=== PATIENT | female | born 1935 | race Caucasian/White ===

== ENCOUNTER 2017-04-10 08:51 | Day surgery (SDC) | payer MEDICARE, OTHER ==
[2017-04-08 11:32] VITALS: BMI 33.1
[~2017-04-10 08:51] MED LIST: LACTATED RINGERS 1,000 ML IV SCH; LIDOCAINE 1% 20 ML VIAL (10MG/ML) FOR IV START INTRADERMA PRN
[2017-04-10 10:00] VITALS: TEMP 99
[2017-04-10] MEDS ORDERED: LIDOCAINE 1% INJ 10MG/ML (20 ML MDV) ONE (11:19)
[2017-04-10] MEDS ORDERED: GLYCOPYRROLATE 0.2 MG/ML 2 ML VIAL ONE (11:19)
[2017-04-10] MEDS ORDERED: PROPOFOL 10 MG/ML 20 ML VIAL IV ONE (11:19)
--- NOTE | 2017-04-10 11:49 | P.PCN ---
Date of Procedure: 04/10/17 Preoperative Diagnosis: Postoperative Diagnosis: Procedure(s) Performed: Procedure: Esophagogastroduodenoscopy and biopsy. Preoperative diagnosis: Hiatal hernia and abnormal barium study. Postoperative diagnosis: 1. Large hiatal hernia with sliding and paraesophageal components with no esophagitis or complicated reflux disease. 2. Gastritis with a small, benign-looking, polypoid elevation in the cardia close to the GE junction, but no ulcers or bleeding. 3. Biopsies obtained from the antrum and cardia. Preparation and sedation: Was provided by anesthesia. Brief clinical history: The patient is an 81-year-old female who is symptomatic from a large hiatal hernia for which she was evaluated for possible surgical intervention. The patient has history of H. pylori infection which was treated in the past. On her recent barium swallow, there was suggestion of mucosal abnormalities which prompted her referral for this EGD prior to surgery. Procedure: With the patient on her left lateral decubitus position and after informed consent and adequate sedation, I passed the Olympus-GIF 160 video upper endoscope through the cricopharyngeus down the esophagus. GE junction was at 30 cm from the incisors. The esophagus did not show any obvious erosions , ulcers, strictures or Hong's esophagus. There was a sizable hiatal hernia , as previously described, with both sliding and paraesophageal components that extended to around 37-38 cm from the incisors. The endoscope was then advanced to the rest of the stomach which was insufflated with air and inspected in detail including the retroflex view in the cardia. There was diffuse mottling and erythema and small polypoid, benign looking, elevation in the cardia close to the GE junction. I obtained biopsies in the antrum and in the cardia before the endoscope was withdrawn. Pyloric channel did not show any ulcers. Duodenal bulb, post bulbar area and descending duodenum showed minimal erythema. The patient tolerated the procedure well. Plan: The patient was reassured. Will await biopsy results. Further plans based on her course. I will forward this information that you and to her surgical team at the [facility]. Implants: Indications for Procedure: Operative Findings: Description of Procedure:
[2017-04-10 11:56] VITALS: RESP 18
[2017-04-10 12:29] VITALS: BP 139/84; PULSE 69
== END 2017-04-10 12:45 | disposition home or self-care (01) ==
LOC: ORWHC2ENDO 08:51
DX: K44.9 Diaphragmatic hernia without obstruction or gangrene (principal); K29.50 Unspecified chronic gastritis without bleeding; K29.00 Acute gastritis without bleeding; I10 Essential (primary) hypertension; K21.9 Gastro-esophageal reflux disease without esophagitis; I25.10 Atherosclerotic heart disease of native coronary artery without angina pectoris; J45.909 Unspecified asthma, uncomplicated; G43.909 Migraine, unspecified, not intractable, without status migrainosus; Z86.711 Personal history of pulmonary embolism; Z88.5 Allergy status to narcotic agent; Z91.040 Latex allergy status; Z79.891 Long term (current) use of opiate analgesic; Z79.51 Long term (current) use of inhaled steroids; Z79.899 Other long term (current) drug therapy
CPT/HCPCS: 88305; 88342; 43239; J2001; J2704

== ENCOUNTER → 2018-07-22 | Outpatient (CLI) | payer MEDICARE, OTHER ==
--- NOTE | 2018-07-22 14:39 | XR ---
EXAMINATION TYPE: XR lumbar spine 2 or 3V DATE OF EXAM: 07/22/2018 COMPARISON: None HISTORY: Fall, pain TECHNIQUE: 4 view lumbar spine FINDINGS: There is a scoliosis present with the convexity to the right centered at L1-2. There 5 lumb ar-type vertebral bodies. Visualized pedicles are intact. There is some limitation due to the scolios is. There is a grade 1 spondylolisthesis of L4 anterior and L5. A retrolisthesis of L3 on L4 which appear s to be a grade 1 is present. There is loss of disc height L2-L3 and L1-2. Note is made of vascular calcification within the aorta. IMPRESSION: 1. Grade 1 Spondylolisthesis of L4 anterior on L5 and L3. 2. Scoliosis. 3. No acute osseous abnormality.
--- NOTE | 2018-07-22 14:48 | CT ---
EXAMINATION TYPE: CT brain wo con DATE OF EXAM: 07/22/2018 COMPARISON: None INDICATION: pain after fall DLP: 997 mGycm, Automated exposure control for dose reduction was used. CONTRAST: None CT of the brain is performed utilizing 3 mm thick sections through the posterior fossa and 3 mm thick sections through the remaining calvarium. Study is performed within 24 hours of arrival to the hosp [facility]. No abnormal hyperdensity is present to suggest an acute intracranial hemorrhage. No mass lesion is evident. No acute infarcts are evident. Minimal periventricular white matter changes may be present, likely on the basis of chronic white matter ischemic change Ventricles and sulci are appropriate for the patient age. Paranasal sinuses and mastoid air cells within the [id number] are clear. IMPRESSIONS: 1. No acute intracranial process.
== END | disposition home or self-care (01) ==
LOC: RADCTMAIN 13:41
PROVIDERS: ATTEND Internal Medicine
DX: M43.16 Spondylolisthesis, lumbar region (principal); M41.86 Other forms of scoliosis, lumbar region; S09.90XA Unspecified injury of head, initial encounter
CPT/HCPCS: 70450; 72100

== ENCOUNTER 2018-11-04 14:16 | Emergency (ER) | payer MEDICARE, OTHER ==
[2018-11-04 14:23] VITALS: TEMP 98.2
[2018-11-04] MEDS ORDERED: ONDANSETRON 4 MG/2 ML VIAL IVP STA ×2 (14:36→18:24)
[2018-11-04] MEDS ORDERED: SODIUM CHLORIDE 0.9% 1,000 ML IV STA (14:36)
--- NOTE | 2018-11-04 14:39 | ED ---
General Adult HPI - General Chief complaint: Nausea/Vomiting/Diarrhea Stated complaint: vomiting Time Seen by Provider: 11/04/18 14:26 Source: patient, RN notes reviewed Mode of arrival: wheelchair Limitations: no limitations - History of Present Illness Initial comments: Patient 83-year-old female presented to the emergency room today with chief complaint of symptoms of nausea vomiting over the last 4 days. Patient does admit that she's had a decreased appetite as he is had multiple episodes of nausea vomiting. Denies any signs of blood in the emesis. States she's not had diarrhea. Does admits to some cramping pain in the abdomen. Patient admits that she started antibiotics of penicillin 5 or 6 days ago due to a dental abscess. Patient denies any other complaints or symptoms. Patient denies any recent fever, chills, shortness of breath, chest pain, back pain, numbness or tingling, dysuria or hematuria, constipation or diarrhea, headaches or visual changes, or any other complaints. - Related Data Home Medications Medication Instructions Recorded Confirmed Metoprolol Succinate (ER) [Toprol 25 mg PO HS 05/02/14 11/04/18 XL] Warfarin [Coumadin] 2.5 mg PO DIRECTED 05/02/14 11/04/18 traMADol HCl [Ultram] 50 - 100 mg PO Q6H PRN 05/02/14 11/04/18 Cetirizine HCl [Zyrtec] 10 mg PO DAILY 04/26/16 11/04/18 Fluticasone Nasal Guys [Flonase 1 spray EA NOSTRIL HS 04/26/16 11/04/18 Nasal Guys] Fluticasone/Salmeterol [Advair 1 puff INHALATION RT-BID 04/26/16 11/04/18 500-50 Diskus] Warfarin [Coumadin] 1.25 mg PO DIRECTED 04/26/16 11/04/18 Citalopram Hydrobromide [CeleXA] 30 mg PO HS 04/08/17 11/04/18 amLODIPine [Norvasc] 2.5 mg PO DAILY 04/08/17 11/04/18 Pantoprazole Sodium [Protonix] 40 mg PO HS 11/04/18 11/04/18 Penicillin V Potassium [Pen Vee K] 500 mg PO TID 11/04/18 11/04/18 Pregabalin [Lyrica] 75 mg PO BID 11/04/18 11/04/18 Vitamin B Complex 1 tab PO DAILY 11/04/18 11/04/18 Previous Rx's Medication Instructions Recorded Metoclopramide HCl [Reglan] 10 mg PO Q6HR PRN #10 tab 11/04/18 Allergies Allergy/AdvReac Type Severity Reaction Status Date / Time tree and shrub pollen Allergy Severe sob, Verified 11/04/18 14:43 sneezing , coughing latex Allergy Unknown RAW SKIN Verified 11/04/18 14:43 AND SCABS FROM ELASTIC mold Allergy Unknown coughing, Verified 11/04/18 14:43 sneezing, sob morphine Allergy Itching, Verified 11/04/18 14:43 sob Review of Systems ROS Statement: Those systems with pertinent positive or pertinent negative responses have been documented in the HPI. ROS Other: All systems not noted in ROS Statement are negative. Past Medical History Past Medical History: Asthma, Blood Disorder, Chest Pain / Angina, GERD/Reflux, Hypertension, Osteoarthritis (OA), Pulmonary Embolus (PE) Additional Past Medical History / Comment(s): Migraines. hiatal hernia, diverticulitis. , occasional irregular heart rate. , vertigo, varicose veins, back pain, sees chiropracter prn, FACTOR 2 BLOOD CLOTTING DISORDER., Carpal tunnel syndrome lacy wrists. History of Any Multi-Drug Resistant Organisms: None Reported Past Surgical History: Appendectomy, Section, Heart Catheterization, Joint Replacement, Tonsillectomy Additional Past Surgical History / Comment(s): knee replacements x3., left hip replacement, left shoulder replacement, lacy rotator cuff. BILATERAL CATARACTS. , right thumb joint replaced. Past Anesthesia/Blood Transfusion Reactions: No Reported Reaction Additional Past Anesthesia/Blood Transfusion Reaction / Comment(s): STATES IT TAKES ALONG TIME TO GET ANESTHESIA OUT OF HER SYSTEM . Past Psychological History: Anxiety, Depression Smoking Status: Never smoker Past Alcohol Use History: None Reported Past Drug Use History: None Reported - Past Family History Mother Family Medical History: No Reported History General Exam - General Exam Comments Initial Comments: General: The patient is awake and alert, in no distress, and does not appear acutely ill. Eye: Pupils are equal, round and reactive to light, extra-ocular movements are intact. No nystagmus. There is normal conjunctiva bilaterally. No signs of icterus. Ears, nose, mouth and throat: There are moist mucous membranes and no oral lesions. Neck: The neck is supple. Cardiovascular: There is a regular rate and rhythm. No murmur, rub or gallop is appreciated. Respiratory: Lungs are clear to auscultation, respirations are non-labored, breath sounds are equal. No wheezes, stridor, rales, or rhonchi. Gastrointestinal: Abdomen soft on palpation. Mild tenderness epigastric and left upper quadrant. No rebound, guarding or CVA tenderness. Musculoskeletal: Normal ROM, no tenderness. Strength 5/5. Sensation intact. Radial/pedal Pulses equal bilaterally 2+. Neurological: A&O x 3. CN II-XII intact, There are no obvious motor or sensory deficits. Coordination appears grossly intact. Speech is normal. Skin: Skin is warm and dry and no rashes or lesions are noted. Psychiatric: Cooperative, appropriate mood & affect, normal judgment. Limitations: no limitations Course Vital Signs 11/04/18 11/04/18 11/04/18 14:20 17:04 18:30 Temperature 98.2 F Pulse Rate 98 93 84 Respiratory 16 18 18 Rate Blood Pressure 163/93 146/88 152/78 O2 Sat by Pulse 96 96 95 Oximetry 11/04/18 19:52 Temperature Pulse Rate 95 Respiratory 18 Rate Blood Pressure 152/87 O2 Sat by Pulse 96 Oximetry EKG Findings - EKG Comments: EKG Findings:: EKG performed at 1449: Shows normal sinus rhythm at 88 bpm. NC interval 132. QRS 88. QT/QTc 404/480. No acute ST changes. Medical Decision Making - Medical Decision Making Patient's CT the abdomen and pelvis does show a large hiatal hernia. Does show evidence for diverticulosis with no evidence of diverticulitis. Patient's CT the head is negative for any acute abnormality. Patient's labs been reviewed unremarkable. Patient's abdomen is soft nontender on repeat exam. Patient reexamined at this time shows no signs of distress. Is feeling better. Abdomen soft nontender. Patient will be discharged home with prescription for Reglan. Advised follow-up family doctor over the next 2 days. Advised return if any symptoms increase or worsen. - Lab Data Result diagrams: 11/04/18 15:10 11/04/18 15:10 Lab Results 11/04/18 11/04/1811/04/18 Range/Units 15:10 15:10 15:10 WBC 8.0 (3.8-10.6) k/uL RBC 4.23 (3.80-5.40) m/uL Hgb 11.5 (11.4-16.0) gm/dL Hct 36.2 (34.0-46.0) % MCV 85.5 (80.0-100.0) fL MCH 27.1 (25.0-35.0) pg MCHC 31.7 (31.0-37.0) g/dL RDW 16.3 H (11.5-15.5) % Plt Count 265 (150-450) k/uL Neutrophils % 81 % Lymphocytes % 12 % Monocytes % 6 % Eosinophils % 0 % Basophils % 0 % Neutrophils # 6.5 (1.3-7.7) k/uL Lymphocytes # 1.0 (1.0-4.8) k/uL Monocytes # 0.4 (0-1.0) k/uL Eosinophils # 0.0 (0-0.7) k/uL Basophils # 0.0 (0-0.2) k/uL Anisocytosis Slight PT (9.0-12.0) sec INR (<1.2) APTT (22.0-30.0) sec Sodium 138 (137-145) mmol/L Potassium 3.7 (3.5-5.1) mmol/L Chloride 107 (98-107) mmol/L Carbon Dioxide 22 (22-30) mmol/L Anion Gap 9 mmol/L BUN 10 (7-17) mg/dL Creatinine 0.58 (0.52-1.04) mg/dL Est GFR (CKD-EPI)AfAm >90 (>60 ml/min/1.73 sqM) Est GFR (CKD-EPI)NonAf 85 (>60 ml/min/1.73 sqM) Glucose 109 H (74-99) mg/dL Calcium 9.5 (8.4-10.2) mg/dL Total Bilirubin 0.7 (0.2-1.3) mg/dL AST 31 (14-36) U/L ALT 23 (9-52) U/L Alkaline Phosphatase 120 (38-126) U/L Total Creatine Kinase 86 (30-135) U/L CK-MB (CK-2) 1.0 (0.0-2.4) ng/mL CK-MB (CK-2) Rel Index 1.2 Troponin I (0.000-0.034) ng/mL Total Protein 7.1 (6.3-8.2) g/dL Albumin 3.7 (3.5-5.0) g/dL Amylase 54 (30-110) U/L Lipase 92 (23-300) U/L Urine Color Urine Appearance (Clear) Urine pH (5.0-8.0) Ur Specific [place] (1.001-1.035) Urine Protein (Negative) Urine Glucose (UA) (Negative) Urine Ketones (Negative) Urine Blood (Negative) Urine Nitrite (Negative) Urine Bilirubin (Negative) Urine Urobilinogen (<2.0) mg/dL Ur Leukocyte Esterase (Negative) Urine RBC (0-5) /hpf Urine WBC (0-5) /hpf Ur Squamous Epith Cells (0-4) /hpf Urine Bacteria (None) /hpf Urine Mucus (None) /hpf 11/04/18 11/04/18 11/04/18 Range/Units 15:10 15:10 15:10 WBC (3.8-10.6) k/uL RBC (3.80-5.40) m/uL Hgb (11.4-16.0) gm/dL Hct (34.0-46.0) % MCV (80.0-100.0) fL MCH (25.0-35.0) pg MCHC (31.0-37.0) g/dL RDW (11.5-15.5) % Plt Count (150-450) k/uL Neutrophils % % Lymphocytes % % Monocytes % % Eosinophils % % Basophils % % Neutrophils # (1.3-7.7) k/uL Lymphocytes # (1.0-4.8) k/uL Monocytes # (0-1.0) k/uL Eosinophils # (0-0.7) k/uL Basophils # (0-0.2) k/uL Anisocytosis PT 15.4 H (9.0-12.0) sec INR 1.5 H (<1.2) APTT 21.7 L (22.0-30.0) sec Sodium (137-145) mmol/L Potassium (3.5-5.1) mmol/L Chloride (98-107) mmol/L Carbon Dioxide (22-30) mmol/L Anion Gap mmol/L BUN (7-17) mg/dL Creatinine (0.52-1.04) mg/dL Est GFR (CKD-EPI)AfAm (>60 ml/min/1.73 sqM) Est GFR (CKD-EPI)NonAf (>60 ml/min/1.73 sqM) Glucose (74-99) mg/dL Calcium (8.4-10.2) mg/dL Total Bilirubin (0.2-1.3) mg/dL AST (14-36) U/L ALT (9-52) U/L Alkaline Phosphatase (38-126) U/L Total Creatine Kinase (30-135) U/L CK-MB (CK-2) (0.0-2.4) ng/mL CK-MB (CK-2) Rel Index Troponin I <0.012 (0.000-0.034) ng/mL Total Protein (6.3-8.2) g/dL Albumin (3.5-5.0) g/dL Amylase (30-110) U/L Lipase (23-300) U/L Urine Color Yellow Urine Appearance Clear (Clear) Urine pH 7.0 (5.0-8.0) Ur Specific [place] 1.007 (1.001-1.035) Urine Protein Negative (Negative) Urine Glucose (UA) Negative (Negative) Urine Ketones 2+ H (Negative) Urine Blood Negative (Negative) Urine Nitrite Negative (Negative) Urine Bilirubin Negative (Negative) Urine Urobilinogen <2.0 (<2.0) mg/dL Ur Leukocyte Esterase Small H (Negative) Urine RBC <1 (0-5) /hpf Urine WBC 2 (0-5) /hpf Ur Squamous Epith Cells 1 (0-4) /hpf Urine Bacteria Rare H (None) /hpf Urine Mucus Rare H (None) /hpf Disposition Clinical Impression: Nausea & vomiting Disposition: HOME SELF-CARE Condition: Good Instructions: Acute Nausea and Vomiting (ED) Additional Instructions: Please use medication as discussed. Please follow-up with family doctor in the next 2 days of symptoms have not improved. Please return to emergency room if the symptoms increase or worsen or for any other concerns. Prescriptions: Metoclopramide HCl [Reglan] 10 mg PO Q6HR PRN #10 tab PRN Reason: Nausea Is patient prescribed a controlled substance at d/c from ED?: No Referrals: Kathryn Hankins MD [Primary Care Provider] - 1-2 days Time of Disposition: 20:21
[2018-11-04 15:28] LABS: Anisocytosis Slight; Basophils % (A) 0 %; Eosinophils % (A) 0 %; HCT 36.2 % (34.0-46.0); HGB 11.5 gm/dL (11.4-16.0); Lymphocytes % (A) 12 %; MCH 27.1 pg (25.0-35.0); MCHC 31.7 g/dL (31.0-37.0); MCV 85.5 fL (80.0-100.0); Mean Platelet Volume 7.2; Monocytes # (A) 0.4 k/uL (0-1.0); Monocytes % (A) 6 %; Neutrophils # (A) 6.5 k/uL (1.3-7.7); Neutrophils % (A) 81 %; Platelet Count 265 k/uL (150-450); RBC 4.23 m/uL (3.80-5.40); RDW 16.3 % (11.5-15.5)
[2018-11-04 15:37] LABS: ALT 23 U/L (9-52); AST 31 U/L (14-36); Albumin 3.7 g/dL (3.5-5.0); Alkaline Phosphatase 120 U/L (38-126); Amylase 54 U/L (30-110); Anion Gap 9 mmol/L; Blood Urea Nitrogen 10 mg/dL (7-17); Calcium 9.5 mg/dL (8.4-10.2); Carbon Dioxide 22 mmol/L (22-30); Chloride 107 mmol/L (98-107); Glucose 109 mg/dL (74-99); Lipase 92 U/L (23-300); Potassium 3.7 mmol/L (3.5-5.1); Sodium 138 mmol/L (137-145); Total Bilirubin 0.7 mg/dL (0.2-1.3); Total Protein 7.1 g/dL (6.3-8.2)
[2018-11-04 16:10] LABS: INR 1.5 (<1.2); Partial Thromboplastin Time 21.7 sec (22.0-30.0); Prothrombin Time 15.4 sec (9.0-12.0)
[2018-11-04 16:48] LABS: Appearance,Urine Clear (Clear); Bacteria,Urine Rare /hpf; Bilirubin,Urine Negative (Negative); Blood,Urine Negative (Negative); Color,Urine Yellow; Glucose,Urine (UA) Negative (Negative); Ketones,Urine 2+ (Negative); Leukocyte Esterase,Urine Small (Negative); Mucus,Urine Rare /hpf; Nitrite,Urine Negative (Negative); Protein,Urine Negative (Negative); RBC,Urine <1 /hpf (0-5); Specific Gravity,Urine 1.007 (1.001-1.035); Squamous Epithelial Cell,Urine 1 /hpf (0-4); Urobilinogen,Urine <2.0 mg/dL (<2.0)
[2018-11-04 17:05] VITALS: RESP 18
[2018-11-04] MEDS ORDERED: ACETAMINOPHEN TAB 325 MG TAB PO STA (17:13)
--- NOTE | 2018-11-04 18:03 | CT ---
EXAMINATION TYPE: CT brain wo con DATE OF EXAM: 11/04/2018 COMPARISON: 07/22/2018 HISTORY: Headache. CT DLP: 1090.4 mGycm Automated exposure control for dose reduction was used. FINDINGS: There is cerebral cortical atrophy. There is no mass effect nor midline shift. There is no sign of in tracranial hemorrhage. The calvarium is intact. IMPRESSION: CEREBRAL ATROPHY. NO ACUTE INTRACRANIAL ABNORMALITY. NO CHANGE.
--- NOTE | 2018-11-04 18:31 | CT ---
EXAMINATION TYPE: CT abdomen pelvis w con DATE OF EXAM: 11/04/2018 COMPARISON: None HISTORY: Upper abdominal pain with nausea and vomiting x [address] DLP: mGycm Automated exposure control for dose reduction was used. TECHNIQUE: Helical acquisition of images was performed from the lung bases through the pelvis. CONTRAST: Performed without Oral Contrast and with IV Contrast, patient injected with 100 mL of Isovue 300. FINDINGS: There is some patchy atelectasis at the right lung base. There is large hiatal hernia. Heart size is normal. There is no pleural effusion. Liver shows no focal defect. Gallbladder appears normal. Spleen appears normal. There is no pancreatic mass. There is no adrenal mass. Kidneys show satisfactory contrast opacification. There is no hydronephrosi s. There is no retroperitoneal adenopathy. Ureters are not dilated. Bladder distends smoothly. There is metal artifact from bilateral hip prosthesis. I see no free fluid in the pelvis. There is no ingui nal hernia. There are multiple sigmoid diverticula. There is no sign of diverticulitis. Terminal ileu m appears normal. Appendix is not seen. There is no sign of appendicitis. There is no evidence of a b owel obstruction. There are small cortical cysts that measure less than 1 cm in the kidneys. There is lumbar dextroscoliosis. There is multilevel spondylotic changes in the lumbar spine. There is degene rative first-degree L4-5 spondylolisthesis. I see no acute fracture. There is anterior wedging of T11 T10 and T9 vertebra. There is wedging of T7 vertebra. Fractures appear old. There is no mesenteric e christopher or adenopathy. There is no sign of free air. IMPRESSION: LARGE HIATAL HERNIA. EXTENSIVE COLONIC DIVERTICULOSIS WITHOUT DIVERTICULITIS. Spondylotic changes in the lumbar spine.
[2018-11-04] MEDS ORDERED: METOCLOPRAMIDE 5 MG/ML 2 ML VIAL IVP STA (19:41)
[2018-11-04] MEDS ORDERED: FAMOTIDINE 20 MG/2 ML VIAL IV STA (19:41)
[2018-11-04 19:59] VITALS: BP 152/87; PULSE 95
== END 2018-11-04 20:43 | disposition home or self-care (01) ==
LOC: EC 14:16
DX: R11.2 Nausea with vomiting, unspecified (principal); R19.7 Diarrhea, unspecified; K44.9 Diaphragmatic hernia without obstruction or gangrene; K57.30 Diverticulosis of large intestine without perforation or abscess without bleeding; J45.909 Unspecified asthma, uncomplicated; K21.9 Gastro-esophageal reflux disease without esophagitis; I10 Essential (primary) hypertension; M19.90 Unspecified osteoarthritis, unspecified site; F41.9 Anxiety disorder, unspecified; F32.9 Major depressive disorder, single episode, unspecified; Z79.51 Long term (current) use of inhaled steroids; Z79.01 Long term (current) use of anticoagulants; Z79.899 Other long term (current) drug therapy; Z91.040 Latex allergy status; Z88.5 Allergy status to narcotic agent; Z91.018 Allergy to other foods; Z91.048 Other nonmedicinal substance allergy status; Z95.5 Presence of coronary angioplasty implant and graft; Z96.642 Presence of left artificial hip joint; Z96.612 Presence of left artificial shoulder joint; Z96.659 Presence of unspecified artificial knee joint
CPT/HCPCS: 36415; 93005; 80053; 82150; 82550; 82553; 83690; 84484; 85025; 85610; 85730; 81001; 70450; 74177; 99284; 96374; 96375 ×2; 96376; 96361 ×3; J2765; J2405; Q9967

== ENCOUNTER → 2019-01-04 | Outpatient (CLI) | payer MEDICARE, OTHER ==
[2019-01-04 11:04] LABS: INR 1.2 (<1.2); Prothrombin Time 12.7 sec (9.0-12.0)
== END | disposition home or self-care (01) ==
LOC: LABWHC1 10:36
PROVIDERS: ATTEND Dentist Oral and Maxillofacial Surgery
DX: D68.9 Coagulation defect, unspecified (principal)
CPT/HCPCS: 36415; 85610

== ENCOUNTER → 2019-12-02 | Outpatient (CLI) | payer MEDICARE, OTHER ==
[2019-12-02 15:59] LABS: INR 2.3 (<1.2); Prothrombin Time 22.6 sec (9.0-12.0)
[2019-12-02 19:59] LABS: African American GFR (CKD) 67.6 (60.0-200.0); Anion Gap 10.9 mmol/L (4.00-12.00); BUN/Creat Ratio 28.89 Ratio (12.00-20.00); Calcium 9.3 mg/dL (8.7-10.3); Carbon Dioxide 26.1 mmol/L (21.6-31.8); Magnesium 1.8 mg/dL (1.5-2.4); Non-African American GFR(CKD) 58.3 (60.0-200.0); Potassium 4.1 mmol/L (3.5-5.5)
== END | disposition home or self-care (01) ==
LOC: LABWHC1 13:52
PROVIDERS: ATTEND Nurse Practitioner Adult Health
DX: I48.20 Chronic atrial fibrillation, unspecified (principal)
CPT/HCPCS: 36415; 80048; 83735; 85610

== ENCOUNTER → 2020-01-18 | Outpatient (CLI) | payer MEDICARE, OTHER ==
--- NOTE | 2020-01-18 15:08 | US ---
EXAMINATION TYPE: US kidneys/renal and bladder DATE OF EXAM: 01/18/2020 COMPARISON: NONE CLINICAL HISTORY: R31.0 Gross hematuria. Episode of gross hematuria, none now EXAM MEASUREMENTS: Right Kidney: 9.2 x 3.6 x 4.9 cm Left Kidney: 8.3 x 4.0 x 4.5 cm Right Kidney: No hydronephrosis or masses seen Left Kidney: limited views appear wnl Bladder: not fully distended, elderly patient IMPRESSION: Normal renal ultrasound
== END | disposition home or self-care (01) ==
LOC: RADUSWWP 13:58
PROVIDERS: ATTEND Internal Medicine
DX: R31.0 Gross hematuria (principal)
CPT/HCPCS: 76770

== ENCOUNTER → 2020-06-28 | Outpatient (CLI) | payer MEDICARE, OTHER ==
[2020-06-28 09:18] LABS: INR 1.3 (<1.2); Prothrombin Time 12.9 sec (9.0-12.0)
== END | disposition home or self-care (01) ==
LOC: LABWHC1 08:43
PROVIDERS: ATTEND Dentist Oral and Maxillofacial Surgery
DX: Z51.81 Encounter for therapeutic drug level monitoring (principal); Z79.01 Long term (current) use of anticoagulants
CPT/HCPCS: 36415; 85610

== ENCOUNTER 2020-07-03 11:02 | Emergency (ER) | payer MEDICARE, OTHER ==
[2020-07-03] MEDS ORDERED: SODIUM CHLORIDE 0.9% 500 ML 500 ML IV STA (11:33)
--- NOTE | 2020-07-03 12:16 | XR ---
EXAMINATION TYPE: XR chest 2V DATE OF EXAM: 07/03/2020 COMPARISON: 06/11/2013 HISTORY: 85-year-old female with fever TECHNIQUE: AP and lateral views FINDINGS: Heart borderline enlarged. Rounded retrocardiac density. Eventration anterior right hemidiaphragm unc hanged. No consolidation or pleural effusion seen. Left shoulder arthroplasty. Full-thickness rotator cuff tear on the right. IMPRESSION: Borderline heart size. Underlying moderate to large hiatal hernia. Chronic eventration anterior right hemidiaphragm. No definite acute process.
--- NOTE | 2020-07-03 13:02 | ED ---
General Adult HPI - General Source: patient Mode of arrival: wheelchair Limitations: no limitations <Joann Duvall - Last Filed: 07/03/20 12:58> <Kaiser Shane - Last Filed: 07/03/20 15:39> - General Chief complaint: Fever Stated complaint: fever, diarrhea, abd pain Time Seen by Provider: 07/03/20 11:08 - History of Present Illness Initial comments: Patient is an 85-year-old female presenting to the emergency Department with complaints of diarrhea, nausea for 2 days. Patient recently had dental work performed approximately 4 days ago and did take oral antibiotics before the procedure, she thinks it was amoxicillin. Patient states she has recovered okay from the procedure but in the last 2 days she started having multiple episodes of diarrhea. She's also been nauseous, no vomiting. She denies any abdominal pain. She states she is on Coumadin and was also started on xarleto to bridge the gap. She was supposed to follow up with her doctor today to test her INR to discontinue xarelto. Patient states she is not been able to eat much over the last 2 days secondary to her nausea. She is having some mild discomfort with urination as well. She denies any chest pain or shortness of breath. She states she does not have a fever today. She denies history of C. diff. She has no further complaints at this time. Upon arrival to the ER, patient was slightly tachycardia, rest of vitals are normal, afebrile. (Joann Duvall) - Related Data Home Medications Medication Instructions Recorded Confirmed Metoprolol Succinate (ER) [Toprol 25 mg PO HS 05/02/14 07/03/20 XL] traMADol HCl [Ultram] 50 mg PO BID 05/02/14 07/03/20 Cetirizine HCl [Zyrtec] 10 mg PO DAILY 04/26/16 07/03/20 Fluticasone Nasal [place] [Flonase 1 spray EA NOSTRIL HS 04/26/16 07/03/20 Nasal [place]] Fluticasone/Salmeterol [Advair 1 puff INHALATION RT-BID 04/26/16 07/03/20 500-50 Diskus] Citalopram Hydrobromide [CeleXA] 30 mg PO HS 04/08/17 07/03/20 amLODIPine [Norvasc] 2.5 mg PO DAILY 04/08/17 07/03/20 Pantoprazole Sodium [Protonix] 40 mg PO HS 11/04/18 07/03/20 Vitamin B Complex 1 tab PO DAILY 11/04/18 07/03/20 Chlorhexidine Gluconate [Peridex] 15 ml PO PC-TID 07/03/20 07/03/20 Gabapentin [Neurontin] 200 mg PO HS 07/03/20 07/03/20 Multivitamins, Thera [Multivitamin 1 tab PO DAILY 07/03/20 07/03/20 (formulary)] Warfarin [Coumadin] 2 mg PO HS 07/03/20 07/03/20 Xarelto Unknown Dose 1 tab PO HS 07/03/20 07/03/20 calcium polycarbophiL [Fibercon] 625 mg PO DAILY 07/03/20 07/03/20 Allergies Allergy/AdvReac Type Severity Reaction Status Date / Time tree and shrub pollen Allergy Severe sob, Verified 07/03/20 12:06 sneezing , coughing mold Allergy Unknown coughing, Verified 07/03/20 12:06 sneezing, sob morphine Allergy Itching, Verified 07/03/20 12:06 sob Review of Systems ROS Other: All systems not noted in ROS Statement are negative. <Joann Duvall - Last Filed: 07/03/20 12:58> ROS Other: All systems not noted in ROS Statement are negative. <Kaiser Shane - Last Filed: 07/03/20 15:39> ROS Statement: Those systems with pertinent positive or pertinent negative responses have been documented in the HPI. Past Medical History Past Medical History: Asthma, Blood Disorder, Chest Pain / Angina, GERD/Reflux, Hypertension, Osteoarthritis (OA), Pulmonary Embolus (PE) Additional Past Medical History / Comment(s): Migraines. hiatal hernia, diverticulitis. , occasional irregular heart rate. , vertigo, varicose veins, back pain, sees chiropracter prn, FACTOR 2 BLOOD CLOTTING DISORDER., Carpal tunnel syndrome lacy wrists. History of Any Multi-Drug Resistant Organisms: None Reported Past Surgical History: Appendectomy, Section, Heart Catheterization, Joint Replacement, Tonsillectomy Additional Past Surgical History / Comment(s): knee replacements x3., left hip replacement, left shoulder replacement, lacy rotator cuff. BILATERAL CATARACTS., right thumb joint replaced. Left carpal tunnel surgery November 2019. 4 dental extractions june 2020 Past Anesthesia/Blood Transfusion Reactions: No Reported Reaction Additional Past Anesthesia/Blood Transfusion Reaction / Comment(s): STATES IT TAKES ALONG TIME TO GET ANESTHESIA OUT OF HER SYSTEM . Past Psychological History: Anxiety, Depression Smoking Status: Never smoker Past Alcohol Use History: None Reported Past Drug Use History: None Reported - Past Family History Mother Family Medical History: No Reported History <Joann Duvall - Last Filed: 07/03/20 12:58> General Exam Limitations: no limitations Rectal exam: Present: normal rectal tone, heme (+) stool <Joann Duvall - Last Filed: 07/03/20 12:58> - General Exam Comments Initial Comments: GENERAL: Patient is well-developed and well-nourished. Patient is nontoxic and in no acute distress. HEAD: Atraumatic, normocephalic. EYES: Pupils equal round and reactive to light, extraocular movements intact, sclera anicteric, conjunctiva are normal. Eyelids were unremarkable. ENT: TMs normal, nares patent, oropharynx clear without exudates. Dry mucous membranes. NECK: Normal range of motion, supple without lymphadenopathy or JVD. LUNGS: Unlabored respirations. Breath sounds clear to auscultation bilaterally and equal. No wheezes rales or rhonchi. HEART: Regular rate and rhythm without murmurs, rubs or gallops. ABDOMEN: Soft, nontender, normoactive bowel sounds. No guarding, no rebound. No masses appreciated. : Deferred MUSCULOSKELETAL: Normal extremities with adequate strength and normal range of motion, no pitting or edema. No clubbing or cyanosis. NEUROLOGICAL: Patient is alert and oriented x 3. Motor and sensory are also intact. Cranial nerves II through XII grossly intact. Symmetrical smile. Normal speech, normal gait. PSYCH: Normal mood, normal affect. SKIN: Warm, Dry, normal turgor, no rashes or lesions noted. (Joann Duvall) Course <Kaiser Shane - Last Filed: 07/03/20 15:39> Vital Signs 07/03/20 11:03 Temperature 98.8 F Pulse Rate 131 H Respiratory 20 Rate Blood Pressure 114/59 O2 Sat by Pulse 98 Oximetry - Reevaluation(s) Reevaluation #1: 07/03/20 15:37 The patient was endorsed me by My physician water quality assistant at her shift change. Patient's UA was unremarkable for evidence of infection she did have heme positive stool did recently have a dental procedure hours she states she had a lot of bleeding. Her CBC is within normal is. She has INR 1.9. I did discuss the case with Dr. Hankins patient will be discharged she is to continue with her Coumadin only. The other anticoagulant. Also follow-up with Dr. Hankins in the office. (Kaiser Shane) Medical Decision Making <Joann Duvall - Last Filed: 07/03/20 12:58> - Lab Data Result diagrams: 07/03/20 13:28 07/03/20 13:28 <Kaiser Shane - Last Filed: 07/03/20 15:39> - Medical Decision Making Patient is a 85-year-old female here for diarrhea, nausea, fever 2 days. He is on Coumadin, had recent dental procedure and was bridging with xarleto. He shouldn't was tachycardia upon arrival, rest of vitals are normal, afebrile today. She denies any abdominal pain. (Joann Duvall) - Lab Data Lab Results 07/03/20 07/03/20 07/03/20 Range/Units 12:46 13:28 13:28 WBC 7.8 (3.8-10.6) k/uL RBC 4.24 (3.80-5.40) m/uL Hgb 12.9 (11.4-16.0) gm/dL Hct 40.2 (34.0-46.0) % MCV 95.0 (80.0-100.0) fL MCH 30.5 (25.0-35.0) pg MCHC 32.1 (31.0-37.0) g/dL RDW 14.0 (11.5-15.5) % Plt Count 194 (150-450) k/uL Neutrophils % 76 % Lymphocytes % 16 % Monocytes % 5 % Eosinophils % 1 % Basophils % 0 % Neutrophils # 5.9 (1.3-7.7) k/uL Lymphocytes # 1.2 (1.0-4.8) k/uL Monocytes # 0.4 (0-1.0) k/uL Eosinophils # 0.1 (0-0.7) k/uL Basophils # 0.0 (0-0.2) k/uL PT (9.0-12.0) sec INR (<1.2) APTT (22.0-30.0) sec Sodium 138 (137-145) mmol/L Potassium 3.9 (3.5-5.1) mmol/L Chloride 105 (98-107) mmol/L Carbon Dioxide 25 (22-30) mmol/L Anion Gap 8 mmol/L BUN 12 (7-17) mg/dL Creatinine 0.68 (0.52-1.04) mg/dL Est GFR (CKD-EPI)AfAm >90 (>60 ml/min/1.73 sqM) Est GFR (CKD-EPI)NonAf 79 (>60 ml/min/1.73 sqM) Glucose 84 (74-99) mg/dL Plasma Lactic Acid Benny (0.7-2.0) mmol/L Calcium 9.3 (8.4-10.2) mg/dL Magnesium 2.0 (1.6-2.3) mg/dL Total Bilirubin 0.6 (0.2-1.3) mg/dL AST 28 (14-36) U/L ALT 14 (4-34) U/L Alkaline Phosphatase 107 (38-126) U/L Total Protein 6.6 (6.3-8.2) g/dL Albumin 3.7 (3.5-5.0) g/dL Urine Color Urine Appearance (Clear) Urine pH (5.0-8.0) Ur Specific [place] (1.001-1.035) Urine Protein (Negative) Urine Glucose (UA) (Negative) Urine Ketones (Negative) Urine Blood (Negative) Urine Nitrite (Negative) Urine Bilirubin (Negative) Urine Urobilinogen (<2.0) mg/dL Ur Leukocyte Esterase (Negative) Urine RBC (0-5) /hpf Urine WBC (0-5) /hpf Ur Squamous Epith Cells (0-4) /hpf Urine Bacteria (None) /hpf Hyaline Casts (0-2) /lpf Urine Mucus (None) /hpf Stool Occult Blood Positive H (Negative) 07/03/20 07/03/20 07/03/20 Range/Units 13:28 13:28 13:48 WBC (3.8-10.6) k/uL RBC (3.80-5.40) m/uL Hgb (11.4-16.0) gm/dL Hct (34.0-46.0) % MCV (80.0-100.0) fL MCH (25.0-35.0) pg MCHC (31.0-37.0) g/dL RDW (11.5-15.5) % Plt Count (150-450) k/uL Neutrophils % % Lymphocytes % % Monocytes % % Eosinophils % % Basophils % % Neutrophils # (1.3-7.7) k/uL Lymphocytes # (1.0-4.8) k/uL Monocytes # (0-1.0) k/uL Eosinophils # (0-0.7) k/uL Basophils # (0-0.2) k/uL PT 18.2 H (9.0-12.0) sec INR 1.9 H (<1.2) APTT 35.1 H (22.0-30.0) sec Sodium (137-145) mmol/L Potassium (3.5-5.1) mmol/L Chloride (98-107) mmol/L Carbon Dioxide (22-30) mmol/L Anion Gap mmol/L BUN (7-17) mg/dL Creatinine (0.52-1.04) mg/dL Est GFR (CKD-EPI)AfAm (>60 ml/min/1.73 sqM) Est GFR (CKD-EPI)NonAf (>60 ml/min/1.73 sqM) Glucose (74-99) mg/dL Plasma Lactic Acid Benny 1.1 (0.7-2.0) mmol/L Calcium (8.4-10.2) mg/dL Magnesium (1.6-2.3) mg/dL Total Bilirubin (0.2-1.3) mg/dL AST (14-36) U/L ALT (4-34) U/L Alkaline Phosphatase (38-126) U/L Total Protein (6.3-8.2) g/dL Albumin (3.5-5.0) g/dL Urine Color Yellow Urine Appearance Clear (Clear) Urine pH 6.0 (5.0-8.0) Ur Specific [place] 1.015 (1.001-1.035) Urine Protein Negative (Negative) Urine Glucose (UA) Negative (Negative) Urine Ketones 1+ H (Negative) Urine Blood Negative (Negative) Urine Nitrite Negative (Negative) Urine Bilirubin Negative (Negative) Urine Urobilinogen <2.0 (<2.0) mg/dL Ur Leukocyte Esterase Large (Negative) Urine RBC 1 (0-5) /hpf Urine WBC 8 H (0-5) /hpf Ur Squamous Epith Cells 1 (0-4) /hpf Urine Bacteria Rare H (None) /hpf Hyaline Casts 6 H (0-2) /lpf Urine Mucus Occasional H (None) /hpf Stool Occult Blood (Negative) Disposition <Joann Duvall - Last Filed: 07/03/20 12:58> Is patient prescribed a controlled substance at d/c from ED?: No <Kaiser Shane - Last Filed: 07/03/20 15:39> Clinical Impression: Diarrhea, Dehydration Disposition: HOME SELF-CARE Condition: Good Instructions (If sedation given, give patient instructions): Acute Diarrhea (ED), Dehydration (ED) Referrals: Kathryn Hankins MD [Primary Care Provider] - 1-2 days
[2020-07-03 13:37] LABS: Basophils % (A) 0 %; Eosinophils # (A) 0.1 k/uL (0-0.7); Eosinophils % (A) 1 %; HCT 40.2 % (34.0-46.0); HGB 12.9 gm/dL (11.4-16.0); Lymphocytes # (A) 1.2 k/uL (1.0-4.8); Lymphocytes % (A) 16 %; MCH 30.5 pg (25.0-35.0); MCHC 32.1 g/dL (31.0-37.0); Mean Platelet Volume 7.8; Monocytes # (A) 0.4 k/uL (0-1.0); Monocytes % (A) 5 %; Neutrophils # (A) 5.9 k/uL (1.3-7.7); Neutrophils % (A) 76 %; Platelet Count 194 k/uL (150-450); RBC 4.24 m/uL (3.80-5.40); WBC 7.8 k/uL (3.8-10.6)
[2020-07-03 13:46] LABS: ALT 14 U/L (4-34); AST 28 U/L (14-36); African American GFR (CKD) >90 (>60 ml/min/1.73 sqM); Albumin 3.7 g/dL (3.5-5.0); Alkaline Phosphatase 107 U/L (38-126); Anion Gap 8 mmol/L; Blood Urea Nitrogen 12 mg/dL (7-17); Calcium 9.3 mg/dL (8.4-10.2); Carbon Dioxide 25 mmol/L (22-30); Chloride 105 mmol/L (98-107); Glucose 84 mg/dL (74-99); Non-African American GFR(CKD) 79 (>60 ml/min/1.73 sqM); Potassium 3.9 mmol/L (3.5-5.1); Sodium 138 mmol/L (137-145); Total Bilirubin 0.6 mg/dL (0.2-1.3); Total Protein 6.6 g/dL (6.3-8.2)
[2020-07-03 13:52] LABS: INR 1.9 (<1.2); Partial Thromboplastin Time 35.1 sec (22.0-30.0); Prothrombin Time 18.2 sec (9.0-12.0)
[2020-07-03 14:12] LABS: Bacteria,Urine Rare /hpf; Hyaline Casts,Urine 6 /lpf (0-2); Mucus,Urine Occasional /hpf; RBC,Urine 1 /hpf (0-5); Squamous Epithelial Cell,Urine 1 /hpf (0-4); WBC,Urine 8 /hpf (0-5)
[2020-07-03 14:14] LABS: Appearance,Urine Clear (Clear); Color,Urine Yellow; Glucose,Urine (UA) Negative (Negative); Ketones,Urine 1+ (Negative); Protein,Urine Negative (Negative); Specific Gravity,Urine 1.015 (1.001-1.035)
[2020-07-03 14:15] LABS: Bilirubin,Urine Negative (Negative); Blood,Urine Negative (Negative); Leukocyte Esterase,Urine Large (Negative); Nitrite,Urine Negative (Negative); Urobilinogen,Urine <2.0 mg/dL (<2.0)
[2020-07-03 15:54] VITALS: BP 137/78; PULSE 95; RESP 18; TEMP 99
== END 2020-07-03 15:54 | disposition home or self-care (01) ==
LOC: EC 11:02
DX: E86.0 Dehydration (principal); R19.7 Diarrhea, unspecified; I10 Essential (primary) hypertension; J45.909 Unspecified asthma, uncomplicated; K21.9 Gastro-esophageal reflux disease without esophagitis; F41.9 Anxiety disorder, unspecified; F32.9 Major depressive disorder, single episode, unspecified; Z79.01 Long term (current) use of anticoagulants; Z79.51 Long term (current) use of inhaled steroids; Z79.899 Other long term (current) drug therapy; Z88.5 Allergy status to narcotic agent; Z91.018 Allergy to other foods; Z91.048 Other nonmedicinal substance allergy status; Z96.612 Presence of left artificial shoulder joint; Z96.653 Presence of artificial knee joint, bilateral; Z96.642 Presence of left artificial hip joint; Z86.711 Personal history of pulmonary embolism
CPT/HCPCS: 36415; 71046; 80053; 81001; 82272; 83605; 83735; 85025; 85610; 85730; 87040; 96360; 99283

== ENCOUNTER 2023-06-02 09:34 | Emergency (ER) | payer MEDICARE, OTHER ==
[2023-06-02 09:43] VITALS: RESP 18
--- NOTE | 2023-06-02 09:48 | ED ---
Weakness HPI - General Chief complaint: Weakness Stated complaint: poss dehydration Time Seen by Provider: 06/02/23 09:35 Source: patient, EMS, RN notes reviewed Mode of arrival: EMS Limitations: no limitations - History of Present Illness Initial comments: This is an 87-year-old female who presents to the emergency department for fevers and weakness. States that over the last 4 days, she has had fevers reaching as high as 102-103F. This has also been making her feel very weak. Denies any nausea or vomiting. Also denies any pain. Does report increasing shortness of breath, however this has been present over the last few months. Denies any chest pain or URI symptoms. She is unaware of any sick contacts. Denies any chills, sore throat, cough, chest pain, palpitations, abdominal pain, nausea, vomiting, diarrhea, back pain, or headaches. MD Complaint: generalized weakness - Related Data Home Medications Medication Instructions Recorded Confirmed Metoprolol Succinate (ER) [Toprol 25 mg PO DAILY 05/02/14 06/02/23 XL] traMADol HCl [Ultram] 50 mg PO TID PRN 05/02/14 06/02/23 Fluticasone Nasal [place] [Flonase 1 spr EA NOSTRIL DAILY 04/26/16 06/02/23 Nasal [place]] Fluticasone Propion/Salmeterol 1 puff INHALATION RT-BID 04/26/16 06/02/23 [Advair 500-50 Diskus] Citalopram Hydrobromide [CeleXA] 30 mg PO DAILY 04/08/17 06/02/23 amLODIPine [Norvasc] 2.5 mg PO DAILY 04/08/17 06/02/23 Pantoprazole Sodium [Protonix] 40 mg PO DAILY 11/04/18 06/02/23 Vitamin B Complex 1 cap PO DAILY 11/04/18 06/02/23 Acetaminophen [Tylenol 8 Hour] 650 - 1,300 mg PO Q8H PRN 06/02/23 06/02/23 Furosemide [Lasix] 20 mg PO DAILY 06/02/23 06/02/23 Melatonin(Unknown Dose) 1 tab PO HS 06/02/23 06/02/23 Montelukast [Singulair] 10 mg PO HS 06/02/23 06/02/23 Warfarin [Coumadin] 1 mg PO W/SUPPER 06/02/23 06/02/23 Allergies Allergy/AdvReac Type Severity Reaction Status Date / Time tree and shrub pollen Allergy Severe sob, Verified 06/02/23 12:13 sneezing , coughing mold Allergy Unknown coughing, Verified 06/02/23 12:13 sneezing, sob morphine Allergy Itching, Verified 06/02/23 12:13 sob Review of Systems ROS Statement: Those systems with pertinent positive or pertinent negative responses have been documented in the HPI. ROS Other: All systems not noted in ROS Statement are negative. Past Medical History Past Medical History: Asthma, Blood Disorder, Chest Pain / Angina, GERD/Reflux, Hypertension, Osteoarthritis (OA), Pulmonary Embolus (PE) Additional Past Medical History / Comment(s): Migraines. hiatal hernia, diverticulitis. , occasional irregular heart rate. , vertigo, varicose veins, back pain, sees chiropracter prn, FACTOR 2 BLOOD CLOTTING DISORDER., Carpal tunnel syndrome lacy wrists. History of Any Multi-Drug Resistant Organisms: None Reported Past Surgical History: Appendectomy, Section, Heart Catheterization, Joint Replacement, Tonsillectomy Additional Past Surgical History / Comment(s): knee replacements x3., left hip replacement, left shoulder replacement, lacy rotator cuff. BILATERAL CATARACTS., right thumb joint replaced. Left carpal tunnel surgery November 2019. 4 dental extractions june 2020 Past Anesthesia/Blood Transfusion Reactions: No Reported Reaction Additional Past Anesthesia/Blood Transfusion Reaction / Comment(s): STATES IT TAKES ALONG TIME TO GET ANESTHESIA OUT OF HER SYSTEM . Past Psychological History: Anxiety, Depression Smoking Status: Never smoker Past Alcohol Use History: None Reported Past Drug Use History: None Reported - Past Family History Mother Family Medical History: No Reported History General Exam Limitations: no limitations General appearance: alert, in no apparent distress Head exam: Present: atraumatic, normocephalic, normal inspection Respiratory exam: Present: normal lung sounds bilaterally. Absent: respiratory distress, wheezes, rales, rhonchi, stridor Cardiovascular Exam: Present: regular rate, normal rhythm, normal heart sounds. Absent: systolic murmur, diastolic murmur, rubs, gallop, clicks GI/Abdominal exam: Present: soft, normal bowel sounds. Absent: distended, tenderness, guarding, rebound, rigid Neurological exam: Present: alert, oriented X3, CN II-XII intact Psychiatric exam: Present: normal affect, normal mood Skin exam: Present: warm, dry, intact, normal color. Absent: rash Course Vital Signs 06/02/23 06/02/23 06/02/23 09:37 10:10 11:00 Temperature 99.4 F Pulse Rate 81 73 69 Respiratory 18 Rate Blood Pressure 129/68 94/54 122/60 O2 Sat by Pulse 95 96 93 L Oximetry 06/02/23 06/02/23 06/02/23 12:00 12:30 14:55 Temperature 98.7 F Pulse Rate 68 82 93 Respiratory 18 Rate Blood Pressure 128/72 118/76 106/93 O2 Sat by Pulse 94 L 94 L 98 Oximetry Medical Decision Making - Medical Decision Making This is an 87-year-old female who presents to the emergency department for weakness and fevers. Was pt. sent in by a medical professional or institution? @ -No Did you speak to anyone other than the patient for history? @ -No Did you review nursing and triage notes? @ -Yes, and I agree, it is accurate with regards to the patient's symptoms. Were old charts reviewed? @ -No Differential Diagnosis? @ -Differential Weakness: Hypoglycemia, shock, sepsis, hyponatremia, anemia, infection, IL, ETOH, adverse medicine reaction, overdose, stroke, this is not meant to be an all-inclusive list. EKG interpreted by me (3pts min.)? @ -EKG interpreted by me demonstrating the following: Atrial fibrillation. Ventricular rate 96 beats per minute, QRS duration 94 ms, QTC 421 ms. X-rays interpreted by me (1pt min.)? @ -Chest x-ray obtained, my interpretation identifies no localized consoli dations or infiltrates. CT interpreted by me (1pt min.)? @ -Not obtained U/S interpreted by me (1pt. min.)? @ -Not obtained What testing was considered but not performed? (CT, X-rays, U/S, labs)? Why? @ -None What meds were considered but not given? Why? @ -None Did you discuss the management of the patient with other professionals? @ -No Did you reconcile home meds? @ -No Was smoking cessation discussed for >3mins.? @ -No Was critical care preformed (if so, how long)? @ -No Were there social determinants of health that impacted care today? How? (Homelessness, low income, unemployed, alcoholism, drug addiction, transportation, low edu. Level, literacy, decrease access to med. care, assisted, rehab)? @ -No Was there de-escalation of care discussed even if they declined? (Discuss DNR or withdrawal of care, Hospice)? @ -No What co-morbidities impacted this encounter? (DM, HTN, Smoking, COPD, CAD, Cancer, CVA, Hep., AIDS, mental health diagnosis, sleep apnea, morbid obesity)? @ -HTN, OA, asthma Was patient admitted / discharged? @ -Discharged. Lab work obtained revealing mild leukocytosis and no other actionable findings. PT/INR values consistent with the patient being on Warfarin. Urinalysis negative for signs of infection. Covid, influenza, and RSV testing were negative. Patient remained afebrile in the emergency department. Given her age with associated weakness, and because she is a fall risk, I did offer admission. However, the patient declined and felt comfortable for discharge home. We did get the patient up and she was able to ambulate with her walker. Patient's daughter will continue to check on her daily and they are again comfortable with her going home at this time. Advised Tylenol as needed for any additional fevers. She is also advised to get up and move around very slowly and to have close follow-up with her primary care provider. Undiagnosed new problem with uncertain prognosis? @ -None Drug Therapy requiring intensive monitoring for toxicity (Heparin, Nitro, Insulin, Cardizem)? @ -None Were any procedures done? @ -None Diagnosis/symptom? @ -Weakness Acute, or Chronic, or Acute on Chronic? @ -Acute Uncomplicated (without systemic symptoms) or Complicated (systemic symptoms)? @ -Uncomplicated Side effects of treatment? @ -None Exacerbation, Progression, or Severe Exacerbation] @ -Not applicable Poses a threat to life or bodily function? @ -No Return precautions reviewed in depth, the patient is instructed to return to the emergency department with any new, worsening, or concerning symptoms. Patient verbalized understanding. This case was discussed in detail with the attending ED physician, Dr. Oconnor. Presentation, findings, and treatment plan discussed in detail as well. - Lab Data Result diagrams: 06/02/23 09:46 07/17/23 09:46 Lab Results 06/02/23 06/02/23 06/02/23 Range/Units 09:46 09:46 09:46 WBC 11.2 H (3.8-10.6) k/uL RBC 3.89 (3.80-5.40) m/uL Hgb 11.6 (11.4-16.0) gm/dL Hct 35.0 (34.0-46.0) % MCV 90.1 (80.0-100.0) fL MCH 29.9 (25.0-35.0) pg MCHC 33.2 (31.0-37.0) g/dL RDW 14.2 (11.5-15.5) % Plt Count 271 (150-450) k/uL MPV 8.6 Neutrophils % 81 % Lymphocytes % 10 % Monocytes % 7 % Eosinophils % 1 % Basophils % 0 % Neutrophils # 9.1 H (1.3-7.7) k/uL Lymphocytes # 1.1 (1.0-4.8) k/uL Monocytes # 0.8 (0-1.0) k/uL Eosinophils # 0.1 (0-0.7) k/uL Basophils # 0.0 (0-0.2) k/uL PT 19.4 H (9.0-12.0) sec INR 2.0 H (<1.2) APTT 37.5 H (22.0-30.0) sec Sodium (137-145) mmol/L Potassium (3.5-5.1) mmol/L Chloride (98-107) mmol/L Carbon Dioxide (22-30) mmol/L Anion Gap mmol/L BUN (7-17) mg/dL Creatinine (0.52-1.04) mg/dL Est GFR (CKD-EPI)AfAm (>60 ml/min/1.73 sqM) Est GFR (CKD-EPI)NonAf (>60 ml/min/1.73 sqM) Glucose (74-99) mg/dL Plasma Lactic Acid Benny (0.7-2.0) mmol/L Calcium (8.4-10.2) mg/dL Magnesium (1.6-2.3) mg/dL Total Bilirubin (0.2-1.3) mg/dL AST (14-36) U/L ALT (4-34) U/L Alkaline Phosphatase (38-126) U/L Troponin I (0.000-0.034) ng/mL NT-Pro-B Natriuret Pep pg/mL Total Protein (6.3-8.2) g/dL Albumin (3.5-5.0) g/dL Urine Color Yellow Urine Appearance Clear (Clear) Urine pH 6.5 (5.0-8.0) Ur Specific Friedens 1.020 (1.001-1.035) Urine Protein 1+ H (Negative) Urine Glucose (UA) Negative (Negative) Urine Ketones 1+ H (Negative) Urine Blood Negative (Negative) Urine Nitrite Negative (Negative) Urine Bilirubin Negative (Negative) Urine Urobilinogen 3.0 (<2.0) mg/dL Ur Leukocyte Esterase Negative (Negative) Urine RBC 1 (0-5) /hpf Urine WBC 1 (0-5) /hpf Ur Squamous Epith Cells 1 (0-4) /hpf Hyaline Casts 4 H (0-2) /lpf Urine Mucus Many H (None) /hpf Influenza Type A (PCR) (Not Detectd) Influenza Type B (PCR) (Not Detectd) RSV (PCR) (Not Detectd) SARS-CoV-2 (PCR) (Not Detectd) 06/02/23 06/02/23 06/02/23 Range/Units 09:46 09:46 09:46 WBC (3.8-10.6) k/uL RBC (3.80-5.40) m/uL Hgb (11.4-16.0) gm/dL Hct (34.0-46.0) % MCV (80.0-100.0) fL MCH (25.0-35.0) pg MCHC (31.0-37.0) g/dL RDW (11.5-15.5) % Plt Count (150-450) k/uL MPV Neutrophils % % Lymphocytes % % Monocytes % % Eosinophils % % Basophils % % Neutrophils # (1.3-7.7) k/uL Lymphocytes # (1.0-4.8) k/uL Monocytes # (0-1.0) k/uL Eosinophils # (0-0.7) k/uL Basophils # (0-0.2) k/uL PT (9.0-12.0) sec INR (<1.2) APTT (22.0-30.0) sec Sodium 135 L (137-145) mmol/L Potassium 4.0 (3.5-5.1) mmol/L Chloride 100 (98-107) mmol/L Carbon Dioxide 27 (22-30) mmol/L Anion Gap 8 mmol/L BUN 10 (7-17) mg/dL Creatinine 0.56 (0.52-1.04) mg/dL Est GFR (CKD-EPI)AfAm >90 (>60 ml/min/1.73 sqM) Est GFR (CKD-EPI)NonAf 84 (>60 ml/min/1.73 sqM) Glucose 100 H (74-99) mg/dL Plasma Lactic Acid Benny 1.3 (0.7-2.0) mmol/L Calcium 8.6 (8.4-10.2) mg/dL Magnesium 1.9 (1.6-2.3) mg/dL Total Bilirubin 0.9 (0.2-1.3) mg/dL AST 30 (14-36) U/L ALT 16 (4-34) U/L Alkaline Phosphatase 72 (38-126) U/L Troponin I <0.012 (0.000-0.034) ng/mL NT-Pro-B Natriuret Pep pg/mL Total Protein 6.6 (6.3-8.2) g/dL Albumin 3.5 (3.5-5.0) g/dL Urine Color Urine Appearance (Clear) Urine pH (5.0-8.0) Ur Specific Friedens (1.001-1.035) Urine Protein (Negative) Urine Glucose (UA) (Negative) Urine Ketones (Negative) Urine Blood (Negative) Urine Nitrite (Negative) Urine Bilirubin (Negative) Urine Urobilinogen (<2.0) mg/dL Ur Leukocyte Esterase (Negative) Urine RBC (0-5) /hpf Urine WBC (0-5) /hpf Ur Squamous Epith Cells (0-4) /hpf Hyaline Casts (0-2) /lpf Urine Mucus (None) /hpf Influenza Type A (PCR) (Not Detectd) Influenza Type B (PCR) (Not Detectd) RSV (PCR) (Not Detectd) SARS-CoV-2 (PCR) (Not Detectd) 06/02/23 06/02/23 Range/Units 09:46 09:46 WBC (3.8-10.6) k/uL RBC (3.80-5.40) m/uL Hgb (11.4-16.0) gm/dL Hct (34.0-46.0) % MCV (80.0-100.0) fL MCH (25.0-35.0) pg MCHC (31.0-37.0) g/dL RDW (11.5-15.5) % Plt Count (150-450) k/uL MPV Neutrophils % % Lymphocytes % % Monocytes % % Eosinophils % % Basophils % % Neutrophils # (1.3-7.7) k/uL Lymphocytes # (1.0-4.8) k/uL Monocytes # (0-1.0) k/uL Eosinophils # (0-0.7) k/uL Basophils # (0-0.2) k/uL PT (9.0-12.0) sec INR (<1.2) APTT (22.0-30.0) sec Sodium (137-145) mmol/L Potassium (3.5-5.1) mmol/L Chloride (98-107) mmol/L Carbon Dioxide (22-30) mmol/L Anion Gap mmol/L BUN (7-17) mg/dL Creatinine (0.52-1.04) mg/dL Est GFR (CKD-EPI)AfAm (>60 ml/min/1.73 sqM) Est GFR (CKD-EPI)NonAf (>60 ml/min/1.73 sqM) Glucose (74-99) mg/dL Plasma Lactic Acid Benny (0.7-2.0) mmol/L Calcium (8.4-10.2) mg/dL Magnesium (1.6-2.3) mg/dL Total Bilirubin (0.2-1.3) mg/dL AST (14-36) U/L ALT (4-34) U/L Alkaline Phosphatase (38-126) U/L Troponin I (0.000-0.034) ng/mL NT-Pro-B Natriuret Pep 308 pg/mL Total Protein (6.3-8.2) g/dL Albumin (3.5-5.0) g/dL Urine Color Urine Appearance (Clear) Urine pH (5.0-8.0) Ur Specific Friedens (1.001-1.035) Urine Protein (Negative) Urine Glucose (UA) (Negative) Urine Ketones (Negative) Urine Blood (Negative) Urine Nitrite (Negative) Urine Bilirubin (Negative) Urine Urobilinogen (<2.0) mg/dL Ur Leukocyte Esterase (Negative) Urine RBC (0-5) /hpf Urine WBC (0-5) /hpf Ur Squamous Epith Cells (0-4) /hpf Hyaline Casts (0-2) /lpf Urine Mucus (None) /hpf Influenza Type A (PCR) Not Detected (Not Detectd) Influenza Type B (PCR) Not Detected (Not Detectd) RSV (PCR) Not Detected (Not Detectd) SARS-CoV-2 (PCR) Not Detected (Not Detectd) - Radiology Data Radiology results: report reviewed, image reviewed Disposition Clinical Impression: Weakness, Fever Disposition: HOME SELF-CARE Instructions (If sedation given, give patient instructions): Fever in Adults (ED), Weakness (ED) Additional Instructions: Return to the emergency department with any new, worsening, or concerning symptoms. Make sure that you move around and get up very slowly. Take Tylenol as needed for additional fevers. Follow up with your primary care provider in 1-2 days. Is patient prescribed a controlled substance at d/c from ED?: No Referrals: Kathryn Hankins MD [Primary Care Provider] - 1-2 days
--- NOTE | 2023-06-02 10:47 | XR ---
EXAMINATION TYPE: XR chest 2V DATE OF EXAM: 06/02/2023 COMPARISON: 07/03/2020 HISTORY: Shortness of breath TECHNIQUE: Frontal and lateral views of the chest are obtained. FINDINGS: Scattered senescent parenchymal changes noted. Hyperinflation compatible with COPD. No evidence for infiltrate. No evidence for atelectasis. Chronic elevation right hemidiaphragm. Heart size is stable. Mediastinal structures are stable and grossly unremarkable. No evidence for hilar prominence. Degenerative changes dorsal spine. IMPRESSION: 1. No evidence for acute pulmonary disease.
[2023-06-02 10:48] LABS: ALT 16 U/L (4-34); African American GFR (CKD) >90 (>60 ml/min/1.73 sqM); Anion Gap 8 mmol/L; Blood Urea Nitrogen 10 mg/dL (7-17); Calcium 8.6 mg/dL (8.4-10.2); Carbon Dioxide 27 mmol/L (22-30); Chloride 100 mmol/L (98-107); Glucose 100 mg/dL (74-99); Non-African American GFR(CKD) 84 (>60 ml/min/1.73 sqM); Sodium 135 mmol/L (137-145); Total Bilirubin 0.9 mg/dL (0.2-1.3)
[2023-06-02 10:50] LABS: AST 30 U/L (14-36); Albumin 3.5 g/dL (3.5-5.0); Alkaline Phosphatase 72 U/L (38-126); Magnesium 1.9 mg/dL (1.6-2.3); Partial Thromboplastin Time 37.5 sec (22.0-30.0); Prothrombin Time 19.4 sec (9.0-12.0); Total Protein 6.6 g/dL (6.3-8.2)
[2023-06-02 11:05] LABS: Basophils % (A) 0 %; Eosinophils # (A) 0.1 k/uL (0-0.7); Eosinophils % (A) 1 %; HGB 11.6 gm/dL (11.4-16.0); Lymphocytes # (A) 1.1 k/uL (1.0-4.8); Lymphocytes % (A) 10 %; MCH 29.9 pg (25.0-35.0); MCHC 33.2 g/dL (31.0-37.0); MCV 90.1 fL (80.0-100.0); Mean Platelet Volume 8.6; Monocytes # (A) 0.8 k/uL (0-1.0); Monocytes % (A) 7 %; Neutrophils # (A) 9.1 k/uL (1.3-7.7); Neutrophils % (A) 81 %; Platelet Count 271 k/uL (150-450); RBC 3.89 m/uL (3.80-5.40); RDW 14.2 % (11.5-15.5); WBC 11.2 k/uL (3.8-10.6)
[2023-06-02 12:44] LABS: Appearance,Urine Clear (Clear); Bilirubin,Urine Negative (Negative); Blood,Urine Negative (Negative); Color,Urine Yellow; Glucose,Urine (UA) Negative (Negative); Hyaline Casts,Urine 4 /lpf (0-2); Ketones,Urine 1+ (Negative); Leukocyte Esterase,Urine Negative (Negative); Mucus,Urine Many /hpf; Nitrite,Urine Negative (Negative); PH, Urine 6.5 (5.0-8.0); Protein,Urine 1+ (Negative); RBC,Urine 1 /hpf (0-5); Squamous Epithelial Cell,Urine 1 /hpf (0-4); WBC,Urine 1 /hpf (0-5)
[2023-06-02 14:56] VITALS: BP 106/93; PULSE 93; TEMP 98.7
== END 2023-06-02 14:56 | disposition home or self-care (01) ==
LOC: EC 09:34
DX: R53.1 Weakness (principal); R50.9 Fever, unspecified; F41.9 Anxiety disorder, unspecified; J45.909 Unspecified asthma, uncomplicated; K21.9 Gastro-esophageal reflux disease without esophagitis; I10 Essential (primary) hypertension; F32.A Depression, unspecified; M19.90 Unspecified osteoarthritis, unspecified site; Z86.711 Personal history of pulmonary embolism; Z79.1 Long term (current) use of non-steroidal anti-inflammatories (NSAID); Z79.01 Long term (current) use of anticoagulants; Z79.51 Long term (current) use of inhaled steroids; Z79.899 Other long term (current) drug therapy; Z91.018 Allergy to other foods; Z88.5 Allergy status to narcotic agent; Z88.8 Allergy status to other drugs, medicaments and biological substances; Z20.822 Contact with and (suspected) exposure to COVID-19
CPT/HCPCS: 36415; 71046; 80053; 81001; 83605; 83735; 83880; 84484; 85025; 85610; 85730; 87636; 93005; 99285

== ENCOUNTER 2024-01-15 14:01 | Inpatient (IN) | payer MEDICARE, OTHER ==
--- NOTE | 2024-01-15 14:45 | ED ---
URI HPI - General Source: patient, family, RN notes reviewed Mode of arrival: EMS Limitations: no limitations <Radha Pete - Last Filed: 01/15/24 14:45> - General Source: RN notes reviewed, old records reviewed Limitations: no limitations - History of Present Illness MD Complaint: fever, cough, nasal congestion, sinus pain -: days(s) Severity: severe Severity scale (1-10): 8 Quality: sharp Consistency: constant Improves With: nothing Worsens With: nothing Associated Symptoms: fever, chills, myalgias, diaphoresis <Ryan Balderrama - Last Filed: 01/20/24 19:07> - General Chief Complaint: Upper Respiratory Infection Stated Complaint: Flu like symptoms Time Seen by Provider: 01/15/24 14:45 - History of Present Illness Initial Comments: Patient is an 88-year-old female presented to ER with chief complaint of cough and congestion. This been going on for the past 3 days. Patient states she feels extremely weak. (Radha Pete) This is a 88-year-old female to ER for persistent cough and congestion, severe weakness with positive exposure at [facility] to both flu and coronavirus patient complains of cough congestion shortness of breath and fever (Ryan Balderrama) - Related Data Home Medications Medication Instructions Recorded Confirmed Metoprolol Succinate (ER) [Toprol 25 mg PO DAILY 05/02/14 01/15/24 XL] traMADol HCl [Ultram] 50 mg PO TID PRN 05/02/14 01/15/24 Fluticasone Nasal [place] [Flonase 1 spr EA NOSTRIL BID 04/26/16 01/15/24 Nasal [place]] Fluticasone Propion/Salmeterol 1 puff INHALATION RT-BID 04/26/16 01/15/24 [Advair 500-50 Diskus] Citalopram Hydrobromide [CeleXA] 20 mg PO BID 04/08/17 01/15/24 Pantoprazole Sodium [Protonix] 40 mg PO DAILY 11/04/18 01/15/24 Vitamin B Complex 1 cap PO DAILY 11/04/18 01/15/24 Furosemide [Lasix] 40 mg PO DAILY 06/02/23 01/15/24 Montelukast [Singulair] 10 mg PO HS 06/02/23 01/15/24 Acetaminophen Tab [Tylenol] 500 mg PO Q6H PRN 01/15/24 01/15/24 Apixaban [Eliquis] 2.5 mg PO BID 01/15/24 01/15/24 Gabapentin [Neurontin] 100 mg PO HS 01/15/24 01/15/24 Melatonin 5 mg PO HS PRN 01/15/24 01/15/24 Previous Rx's Medication Instructions Recorded Albuterol Inhaler [Ventolin Hfa 2 puff INHALATION RT-QID PRN #30 01/19/24 Inhaler] each Oseltamivir 6Mg/ml Oral Susp 30 mg PO Q12HR #4 each 01/19/24 [Tamiflu] dexAMETHasone ORAL [Hexadrol] 6 mg PO DAILY #18 tab 01/19/24 guaiFENesin [Mucinex] 600 mg PO Q12HR PRN #10 tab 01/19/24 Allergies Allergy/AdvReac Type Severity Reaction Status Date / Time tree and shrub pollen Allergy Severe sob, Verified 01/15/24 18:14 sneezing , coughing mold Allergy Unknown coughing, Verified 01/15/24 18:14 sneezing, sob morphine Allergy Itching, Verified 01/15/24 18:14 sob NSAIDS (Non-Steroidal AdvReac Verified 01/15/24 18:14 Anti-Inflamma Review of Systems ROS Other: All systems not noted in ROS Statement are negative. <Radha Pete - Last Filed: 01/15/24 14:45> ROS Other: All systems not noted in ROS Statement are negative. <Ryan Balderrama - Last Filed: 01/20/24 19:07> ROS Statement: Those systems with pertinent positive or pertinent negative responses have been documented in the HPI. Past Medical History Past Medical History: Asthma, Blood Disorder, Chest Pain / Angina, GERD/Reflux, Hypertension, Osteoarthritis (OA), Pulmonary Embolus (PE) Additional Past Medical History / Comment(s): Migraines. hiatal hernia, diverticulitis. , occasional irregular heart rate. , vertigo, varicose veins, back pain, sees chiropracter prn, FACTOR 2 BLOOD CLOTTING DISORDER., Carpal tunnel syndrome lacy wrists. History of Any Multi-Drug Resistant Organisms: None Reported Past Surgical History: Appendectomy, Section, Heart Catheterization, Joint Replacement, Tonsillectomy Additional Past Surgical History / Comment(s): knee replacements x3., left hip replacement, left shoulder replacement, lacy rotator cuff. BILATERAL CATARACTS., right thumb joint replaced. Left carpal tunnel surgery November 2019. 4 dental extractions june 2020 Past Anesthesia/Blood Transfusion Reactions: No Reported Reaction Additional Past Anesthesia/Blood Transfusion Reaction / Comment(s): STATES IT TAKES ALONG TIME TO GET ANESTHESIA OUT OF HER SYSTEM . Past Psychological History: Anxiety, Depression Smoking Status: Never smoker Past Alcohol Use History: None Reported Past Drug Use History: None Reported - Past Family History Mother Family Medical History: No Reported History <Radha Pete - Last Filed: 01/15/24 14:45> General Exam Limitations: no limitations <Radha Pete - Last Filed: 01/15/24 14:45> General appearance: alert, in no apparent distress Head exam: Present: atraumatic, normocephalic, normal inspection Eye exam: Present: normal appearance, PERRL, EOMI. Absent: scleral icterus, conjunctival injection, periorbital swelling ENT exam: Present: normal exam, mucous membranes moist Neck exam: Present: normal inspection. Absent: tenderness, meningismus, lymphadenopathy Respiratory exam: Present: normal lung sounds bilaterally. Absent: respiratory distress, wheezes, rales, rhonchi, stridor Cardiovascular Exam: Present: regular rate, normal rhythm, normal heart sounds. Absent: systolic murmur, diastolic murmur, rubs, gallop, clicks GI/Abdominal exam: Present: soft, normal bowel sounds. Absent: distended, tenderness, guarding, rebound, rigid Extremities exam: Present: normal inspection, full ROM, normal capillary refill. Absent: tenderness, pedal edema, joint swelling, calf tenderness Back exam: Present: normal inspection Neurological exam: Present: alert, oriented X3, CN II-XII intact Psychiatric exam: Present: normal affect, normal mood Skin exam: Present: warm, dry, intact, normal color. Absent: rash <Ryan Balderrama - Last Filed: 01/20/24 19:07> - General Exam Comments Initial Comments: Visual Physical Exam Vital signs reviewed General: Well-appearing, nontoxic, no acute distress. Head: Normocephalic, atraumatic Eyes: PERRLA, EOMI ENT: Airway patent Chest: Nonlabored breathing Skin: No visual rash, normal skin tone Neuro: Alert and oriented 3 Musculoskeletal: No gross abnormalities (Radha Pete) Course <Ryan Balderrama - Last Filed: 01/20/24 19:07> Vital Signs 01/15/24 01/15/24 01/15/24 14:31 17:29 20:26 Temperature 100.1 F H 99.9 F H 99.1 F Pulse Rate 88 83 73 Respiratory 16 20 20 Rate Blood Pressure 122/80 147/78 112/59 O2 Sat by Pulse 97 96 92 L Oximetry 01/15/24 01/16/24 23:22 04:43 Temperature 98.4 F 98.4 F Pulse Rate 74 56 L Respiratory 20 19 Rate Blood Pressure 105/70 117/66 O2 Sat by Pulse 95 96 Oximetry - Reevaluation(s) Reevaluation #1: 01/15/24 19:36 Medical record is reviewed (Ryan Balderrama) Reevaluation #2: 01/15/24 19:37 Patient symptoms are improved (Ryan Balderrama) Reevaluation #3: 01/15/24 19:37 Patient informed of results and questions answered (Ryan Balderrama) Reevaluation #4: Was pt. sent in by a medical professional or institution ([facility], HAND SHAPER, urgent care, hospital, or custodial...) When possible be specific @ -no Did you speak to anyone other than the patient for history (EMS, parent, family, police, friend...)? What history was obtained from this source @ -no Did you review nursing and triage notes (agree or disagree)? Why? @ -agree Are old charts reviewed (outside hosp., previous admission, EMS record, old EKG, old radiological studies, urgent care reports/EKG's, custodial records)? Report findings @ -yes Differential Diagnosis (chest pain, altered mental status, abdominal pain women, abdominal pain men, vaginal bleeding, weakness, fever, dyspnea, syncope, headache, dizziness, GI bleed, back pain, seizure, CVA, palpatations, mental health, musculoskeletal)? @ -prior EKG interpreted by me (3pts min.). @ -no X-rays interpreted by me (1pt min.). @ -yes negative for acute disease CT interpreted by me (1pt min.). @ -no U/S interpreted by me (1pt. min.). @ -no What testing was considered but not performed or refused? (CT, X-rays, U/S, labs)? Why? @ -none What meds were considered but not given or refused? Why? @ -none Did you discuss the management of the patient with other professionals (professionals i.e. , PA, HAND SHAPER, lab, RT, psych nurse, aids social worker, voltage inspector, teacher, community reinvestment act officer, field nurse case manager)? Give summary @ -no Was smoking cessation discussed for >3mins.? @ -no Was critical care preformed (if so, how long)? @ -no Were there social determinants of health that impacted care today? How? (Homelessness, low income, unemployed, alcoholism, drug addiction, transportation, low edu. Level, literacy, decrease access to med. care, custodial, rehab)? @ -none Was there de-escalation of care discussed even if they declined (Discuss DNR or withdrawal of care, Hospice)? DNR status @ -no What co-morbidities impacted this encounter? (DM, HTN, Smoking, COPD, CAD, Cancer, CVA, ARF, Chemo, Hep., AIDS, mental health diagnosis, sleep apnea, morbid obesity)? @ -none Was patient admitted / discharged? Hospital course, mention meds given and route, prescriptions, significant lab abnormalities, going to OR and other pertinent info. @ - 88 female to ER for evaluation, patient will be admitted for severe fever weakness coronavirus and flu Niya. Admitted Undiagnosed new problem with uncertain prognosis? @ -no Drug Therapy requiring intensive monitoring for toxicity (Heparin, Nitro, Insulin, Cardizem)? @ -no Were any procedures done? @ -no Diagnosis/symptom? @ -Influenza and weakness and fever Acute, or Chronic, or Acute on Chronic? @ -Acute Uncomplicated (without systemic symptoms) or Complicated (systemic symptoms)? @ -Complicated Side effects of treatment? @ -no Exacerbation, Progression, or Severe Exacerbation? @ -exacerbation Poses a threat to life or bodily function? How? (Chest pain, [place], [place], pneumonia, PE, COPD, DKA, ARF, appy, cholecystitis, CVA, Diverticulitis, Homicidal, Suicidal, threat to staff... and all critical care pts) @ -yes (Ryan Balderrama) Reevaluation #5: 01/15/24 19:37 Differential Fever: Pneumonia, viral URI, endocarditis, myocarditis, pericarditis, otitis, sinusitis, peritonsillar Abscess, retropharyngeal Abscess, epiglottitis, peritonitis, appendicitis, Laura cystitis, diverticulitis, hepatitis, colitis, UTI, PID, TOA, pyelonephritis, prostatitis, epididymitis, meningitis, encephalitis, pulmonary embolism, CVA, thyroid storm, pancreatitis, adrenal crisis, cavernous sinus thrombosis, this is not meant to be an all-inclusive list. (Ryan Balderrama) - Consultations Consultation #1: Spoke with admitting physicians who agreed to admit this patient (Ryan Balderrama) Medical Decision Making <Radha Pete - Last Filed: 01/15/24 14:45> - Lab Data Result diagrams: 01/16/24 06:39 01/16/24 06:39 - Radiology Data Radiology results: report reviewed (Chest x-ray is negative for acute disease), image reviewed <Ryan Balderrama - Last Filed: 01/20/24 19:07> - Medical Decision Making I performed the quick note portion of this chart. Electronically signed by Radha Pete PA-C (Radha Pete) 88 female to ER for evaluation, patient will be admitted for severe fever weakness coronavirus and flu Niya (Ryan Balderrama) - Lab Data Lab Results 01/15/24 01/15/24 01/15/24 Range/Units 14:35 17:48 17:48 WBC 6.6 (3.8-10.6) k/uL RBC 3.68 L (3.80-5.40) m/uL Hgb 11.6 (11.4-16.0) gm/dL Hct 34.4 (34.0-46.0) % MCV 93.5 (80.0-100.0) fL MCH 31.4 (25.0-35.0) pg MCHC 33.6 (31.0-37.0) g/dL RDW 14.4 (11.5-15.5) % Plt Count 224 (150-450) k/uL MPV 7.8 Immature Gran % (Auto) % Absolute Nucleated RBC % Neutrophils % 78 % Lymphocytes % 13 % Monocytes % 6 % Eosinophils % 0 % Basophils % 1 % Immature Gran # (0.00-0.04) X 10*3/uL Neutrophils # 5.2 (1.3-7.7) k/uL Lymphocytes # 0.8 L (1.0-4.8) k/uL Monocytes # 0.4 (0-1.0) k/uL Eosinophils # 0.0 (0-0.7) k/uL Basophils # 0.0 (0-0.2) k/uL NRBC/100 WBC Diff (0.00-0.01) X 10*3/uL PT 11.1 (10.0-12.5) sec INR 1.0 (<1.2) APTT 23.0 (22.0-30.0) sec Sodium (137-145) mmol/L Potassium (3.5-5.1) mmol/L Chloride (98-107) mmol/L Carbon Dioxide (22-30) mmol/L Anion Gap mmol/L BUN (7-17) mg/dL Creatinine (0.52-1.04) mg/dL Est GFR (CKD-EPI) (>=60) Est GFR (CKD-EPI)AfAm (>60 ml/min/1.73 sqM) Est GFR (CKD-EPI)NonAf (>60 ml/min/1.73 sqM) BUN/Creatinine Ratio (12.00-20.00) Ratio Glucose (74-99) mg/dL Plasma Lactic Acid Benny (0.7-2.0) mmol/L Calcium (8.4-10.2) mg/dL Phosphorus (2.5-4.5) mg/dL Magnesium (1.6-2.3) mg/dL Total Bilirubin (0.2-1.3) mg/dL AST (14-36) U/L ALT (4-34) U/L Alkaline Phosphatase (38-126) U/L Total Protein (6.3-8.2) g/dL Albumin (3.5-5.0) g/dL Globulin (1.6-3.3) g/dL Albumin/Globulin Ratio (1.60-3.17) Ratio Influenza Type A (PCR) Detected A (Not Detectd) Influenza Type B (PCR) Not Detected (Not Detectd) RSV (PCR) Not Detected (Not Detectd) SARS-CoV-2 (PCR) Detected A (Not Detectd) 01/15/24 01/15/24 01/16/24 Range/Units 17:48 17:48 06:39 WBC 5.03 (3.8-10.6) k/uL RBC 3.58 L (3.80-5.40) m/uL Hgb 10.6 L (11.4-16.0) gm/dL Hct 33.7 L (34.0-46.0) % MCV 94.1 (80.0-100.0) fL MCH 29.6 (25.0-35.0) pg MCHC 31.5 L (31.0-37.0) g/dL RDW 14.4 (11.5-15.5) % Plt Count 226 (150-450) k/uL MPV 10.5 Immature Gran % (Auto) 0.40 % Absolute Nucleated RBC 0 % Neutrophils % 67.2 % Lymphocytes % 22.9 % Monocytes % 9.1 % Eosinophils % 0 % Basophils % 0.4 % Immature Gran # 0.02 (0.00-0.04) X 10*3/uL Neutrophils # 3.38 (1.3-7.7) k/uL Lymphocytes # 1.15 (1.0-4.8) k/uL Monocytes # 0.46 (0-1.0) k/uL Eosinophils # 0 L (0-0.7) k/uL Basophils # 0.02 (0-0.2) k/uL NRBC/100 WBC Diff 0 (0.00-0.01) X 10*3/uL PT (10.0-12.5) sec INR (<1.2) APTT (22.0-30.0) sec Sodium 138 (137-145) mmol/L Potassium 4.0 (3.5-5.1) mmol/L Chloride 107 (98-107) mmol/L Carbon Dioxide 26 (22-30) mmol/L Anion Gap 5 mmol/L BUN 17 (7-17) mg/dL Creatinine 0.69 (0.52-1.04) mg/dL Est GFR (CKD-EPI) (>=60) Est GFR (CKD-EPI)AfAm 89 (>60 ml/min/1.73 sqM) Est GFR (CKD-EPI)NonAf 78 (>60 ml/min/1.73 sqM) BUN/Creatinine Ratio (12.00-20.00) Ratio Glucose 102 H (74-99) mg/dL Plasma Lactic Acid Benny 1.2 (0.7-2.0) mmol/L Calcium 9.0 (8.4-10.2) mg/dL Phosphorus 3.5 (2.5-4.5) mg/dL Magnesium 2.0 (1.6-2.3) mg/dL Total Bilirubin 0.4 (0.2-1.3) mg/dL AST 30 (14-36) U/L ALT 15 (4-34) U/L Alkaline Phosphatase 82 (38-126) U/L Total Protein 6.2 L (6.3-8.2) g/dL Albumin 3.5 (3.5-5.0) g/dL Globulin (1.6-3.3) g/dL Albumin/Globulin Ratio (1.60-3.17) Ratio Influenza Type A (PCR) (Not Detectd) Influenza Type B (PCR) (Not Detectd) RSV (PCR) (Not Detectd) SARS-CoV-2 (PCR) (Not Detectd) 01/16/24 Range/Units 06:39 WBC (3.8-10.6) k/uL RBC (3.80-5.40) m/uL Hgb (11.4-16.0) gm/dL Hct (34.0-46.0) % MCV (80.0-100.0) fL MCH (25.0-35.0) pg MCHC (31.0-37.0) g/dL RDW (11.5-15.5) % Plt Count (150-450) k/uL MPV Immature Gran % (Auto) % Absolute Nucleated RBC % Neutrophils % % Lymphocytes % % Monocytes % % Eosinophils % % Basophils % % Immature Gran # (0.00-0.04) X 10*3/uL Neutrophils # (1.3-7.7) k/uL Lymphocytes # (1.0-4.8) k/uL Monocytes # (0-1.0) k/uL Eosinophils # (0-0.7) k/uL Basophils # (0-0.2) k/uL NRBC/100 WBC Diff (0.00-0.01) X 10*3/uL PT (10.0-12.5) sec INR (<1.2) APTT (22.0-30.0) sec Sodium 140 (137-145) mmol/L Potassium 4.1 (3.5-5.1) mmol/L Chloride 108 (98-107) mmol/L Carbon Dioxide 22.1 (22-30) mmol/L Anion Gap 9.90 mmol/L BUN 14.3 (7-17) mg/dL Creatinine 0.6 (0.52-1.04) mg/dL Est GFR (CKD-EPI) 86 (>=60) Est GFR (CKD-EPI)AfAm (>60 ml/min/1.73 sqM) Est GFR (CKD-EPI)NonAf (>60 ml/min/1.73 sqM) BUN/Creatinine Ratio 23.83 H (12.00-20.00) Ratio Glucose 95 (74-99) mg/dL Plasma Lactic Acid Benny (0.7-2.0) mmol/L Calcium 8.8 (8.4-10.2) mg/dL Phosphorus 3.1 (2.5-4.5) mg/dL Magnesium 2.2 (1.6-2.3) mg/dL Total Bilirubin <0.2 L (0.2-1.3) mg/dL AST 21 (14-36) U/L ALT 12 (4-34) U/L Alkaline Phosphatase 70 (38-126) U/L Total Protein 5.7 L (6.3-8.2) g/dL Albumin 3.3 L (3.5-5.0) g/dL Globulin 2.4 (1.6-3.3) g/dL Albumin/Globulin Ratio 1.38 L (1.60-3.17) Ratio Influenza Type A (PCR) (Not Detectd) Influenza Type B (PCR) (Not Detectd) RSV (PCR) (Not Detectd) SARS-CoV-2 (PCR) (Not Detectd) Disposition <Radha Pete - Last Filed: 01/15/24 14:45> Is patient prescribed a controlled substance at d/c from ED?: No Time of Disposition: 16:30 <Ryan Balderrama - Last Filed: 01/20/24 19:07> Clinical Impression: Acute upper respiratory infection, Influenza, Coronavirus infection, Fever, Weakness Disposition: ADMITTED IP TO THIS HOSP Condition: Stable
--- NOTE | 2024-01-15 14:56 | XR ---
EXAMINATION TYPE: XR chest 2V DATE OF EXAM: 01/15/2024 COMPARISON: 06/02/2023 INDICATION: Cough congestion TECHNIQUE: Frontal and lateral views of the chest are obtained. FINDINGS: The heart size is normal. The pulmonary vasculature is normal. The lungs are clear. There is focal eventration of the right diaphragm. Hiatal hernia is present. Left shoulder prosthesis is present. Chronic rotator cuff tears are present bilaterally. IMPRESSION: 1. No acute pulmonary process.
[2024-01-15] MEDS ORDERED: NALOXONE 0.4 MG/ML 1 ML VIAL IV PRN (16:30)
[2024-01-15] MEDS ORDERED: MORPHINE SULFATE 4 MG/ML SYRINGE IV PRN (16:30)
[2024-01-15] MEDS ORDERED: IBUPROFEN 400 MG TAB PO PRN (16:30)
[2024-01-15] MEDS ORDERED: ONDANSETRON 4 MG/2 ML VIAL IVP PRN (16:30)
[2024-01-15] MEDS: SODIUM CHLORIDE 0.9% 1,000 ML IV STA ×2 (17:23→17:39)
[2024-01-15] MEDS: ACETAMINOPHEN IV (For NPO) 1,000 MG in EMPTY BAG 1 BAG IVPB ONE (17:24)
[2024-01-15 18:09] LABS: Basophils % (A) 1 %; Eosinophils % (A) 0 %; HCT 34.4 % (34.0-46.0); HGB 11.6 gm/dL (11.4-16.0); Lymphocytes # (A) 0.8 k/uL (1.0-4.8); Lymphocytes % (A) 13 %; MCH 31.4 pg (25.0-35.0); MCHC 33.6 g/dL (31.0-37.0); MCV 93.5 fL (80.0-100.0); Mean Platelet Volume 7.8; Monocytes # (A) 0.4 k/uL (0-1.0); Monocytes % (A) 6 %; Neutrophils # (A) 5.2 k/uL (1.3-7.7); Neutrophils % (A) 78 %; Platelet Count 224 k/uL (150-450); RBC 3.68 m/uL (3.80-5.40); RDW 14.4 % (11.5-15.5); WBC 6.6 k/uL (3.8-10.6)
[2024-01-15] MEDS: KETOROLAC 15 MG/ML 1 ML VIAL IVP STA (18:09)
[2024-01-15] MEDS: DEXAMETHASONE SOD PHOSPHATE 10 MG/ML 1 ML VIAL IVP STA (18:09)
[2024-01-15 18:13] LABS: Prothrombin Time 11.1 sec (10.0-12.5)
[2024-01-15] MEDS: OSELTAMIVIR 75 MG CAP PO STA (18:14)
[2024-01-15 18:53] LABS: ALT 15 U/L (4-34); AST 30 U/L (14-36); African American GFR (CKD) 89 (>60 ml/min/1.73 sqM); Albumin 3.5 g/dL (3.5-5.0); Alkaline Phosphatase 82 U/L (38-126); Anion Gap 5 mmol/L; Blood Urea Nitrogen 17 mg/dL (7-17); Carbon Dioxide 26 mmol/L (22-30); Chloride 107 mmol/L (98-107); Glucose 102 mg/dL (74-99); Non-African American GFR(CKD) 78 (>60 ml/min/1.73 sqM); Phosphorus 3.5 mg/dL (2.5-4.5); Sodium 138 mmol/L (137-145); Total Bilirubin 0.4 mg/dL (0.2-1.3); Total Protein 6.2 g/dL (6.3-8.2)
[2024-01-15] MEDS: SODIUM CHLORIDE 0.9% 1,000 ML IV SCH (20:22)
[2024-01-15] MEDS ORDERED: MELATONIN 5 MG TABLET PO PRN (21:36)
--- NOTE | 2024-01-15 21:38 | P.HPIM ---
History of Present Illness H&P Date: 01/15/24 Patient is a 88-year-old female with a PMH of history of PE on Eliquis, asthma, hypertension, GERD who presents to the emergency room with complaints of fever, myalgia, and generalized weakness. Patient notes she has been feeling ill for the past 2 to 3 days and had a fever of 102 F at home today. She lives by herself but her daughter and son-in-law checking on her almost daily and that she was too weak to ambulate earlier today which prompted her daughter to activate EMS. Patient reports a cough productive of yellow-green phlegm over the past few days along with a mild shortness of breath without experiencing chest discomfort. Does also endorse a mild sore throat. Denies nausea, vomit ing, abdominal pain, lower extremity swelling, lower extremity pain. Chest x-ray in the emergency room was unremarkable. Laboratory evaluation revealed an influenza type a and coronavirus PCR positive. Patient reports being up-to-date with her COVID-19 and influenza vaccinations. The patient's T max in the emergency room was 100.1 F with SpO2 92% on room air which improved to 98% with 2 L nasal cannula oxygen. ED documentation reviewed and case discussed with ED provider. Review of systems: Pertinent positives and negatives as discussed in HPI, a complete review of systems was performed and all other systems are negative. Physical examination: Vital signs reviewed General: non toxic, no distress, appears at stated age, normal weight Derm: no unusual rashes/lesions, warm Head: atraumatic, normocephalic, symmetric Eyes: EOMI, no lid lag, anicteric sclera, pupils equal round reactive to light ENT: Nose and ears atraumatic Neck: No cervical lymphadenopathy, trachea midline, supple Mouth: no lip lesion, mucus membranes moist Cardiovascular: S1S2 reg, no murmur, positive dorsalis pedis pulse bilateral, no edema Lungs: CTA bilateral, no rhonchi, no rales, no accessory muscle use Abdominal: soft, nontender to palpation, no guarding Ext: muscle strength 4 out of 5 in all 4 extremities grossly, no gross muscle atrophy, no contractures, Neuro: CN II-XI grossly intact, no gross focal neuro deficits Psych: Alert, oriented, appropriate affect Assessment: Acute hypoxic respiratory failure with superimposed influenza A and COVID-19 infections, rule out bacterial pneumonia Chronic conditions: History of PE, asthma, hypertension, GERD Imaging: Chest x-ray in the emergency room was unremarkable Data Review: Laboratory evaluation revealed an influenza type a and coronavirus PCR positive. Patient reports being up-to-date with her COVID-19 and influenza vaccinations. The patient's Tmax in the emergency room was 100.1 F with SpO2 92% on room air which improved to 98% with 2 L nasal cannula oxygen. Plan: Continue supplemental oxygen Start Decadron 6 mg p.o. daily Start patient on Tamiflu 75 mg p.o. every 12 hourly for 5 days Continue IV fluids normal saline 75 cc/h Continue remaining home medications DVT prophylaxis: Noemyquis The patient is admitted with an anticipated greater than than 2 midnight stay for evaluation of influenza infection CODE STATUS: Full Code Discussed with: Patient Anticipated discharge place: Home Past Medical History Past Medical History: Asthma, Blood Disorder, Chest Pain / Angina, GERD/Reflux, Hypertension, Osteoarthritis (OA), Pulmonary Embolus (PE) Additional Past Medical History / Comment(s): Migraines. hiatal hernia, diverticulitis. , occasional irregular heart rate. , vertigo, varicose veins, back pain, sees chiropracter prn, FACTOR 2 BLOOD CLOTTING DISORDER., Carpal tunnel syndrome lacy wrists. History of Any Multi-Drug Resistant Organisms: None Reported Past Surgical History: Appendectomy, Section, Heart Catheterization, Joint Replacement, Tonsillectomy Additional Past Surgical History / Comment(s): knee replacements x3., left hip replacement, left shoulder replacement, lacy rotator cuff. BILATERAL CATARACTS., right thumb joint replaced. Left carpal tunnel surgery November 2019. 4 dental extractions june 2020 Past Anesthesia/Blood Transfusion Reactions: No Reported Reaction Additional Past Anesthesia/Blood Transfusion Reaction / Comment(s): STATES IT TAKES ALONG TIME TO GET ANESTHESIA OUT OF HER SYSTEM . Past Psychological History: Anxiety, Depression Smoking Status: Never smoker Past Alcohol Use History: None Reported Past Drug Use History: None Reported - Past Family History Mother Family Medical History: No Reported History Medications and Allergies Home Medications Medication Instructions Recorded Confirmed Type Metoprolol Succinate (ER) [Toprol 25 mg PO DAILY 05/02/14 01/15/24 History XL] traMADol HCl [Ultram] 50 mg PO TID PRN 05/02/14 01/15/24 History Fluticasone Nasal [place] [Flonase 1 spr EA NOSTRIL BID 04/26/16 01/15/24 History Nasal [place]] Fluticasone Propion/Salmeterol 1 puff INHALATION RT-BID 04/26/16 01/15/24 History [Advair 500-50 Diskus] Citalopram Hydrobromide [CeleXA] 20 mg PO BID 04/08/17 01/15/24 History Pantoprazole Sodium [Protonix] 40 mg PO DAILY 11/04/18 01/15/24 History Vitamin B Complex 1 cap PO DAILY 11/04/18 01/15/24 History Furosemide [Lasix] 40 mg PO DAILY 06/02/23 01/15/24 History Montelukast [Singulair] 10 mg PO HS 06/02/23 01/15/24 History Acetaminophen Tab [Tylenol Tab] 500 mg PO Q6H PRN 01/15/24 01/15/24 History Apixaban [Eliquis] 2.5 mg PO BID 01/15/24 01/15/24 History Gabapentin [Neurontin] 100 mg PO HS 01/15/24 01/15/24 History Melatonin 5 mg PO HS PRN 01/15/24 01/15/24 History Allergies Allergy/AdvReac Type Severity Reaction Status Date / Time tree and shrub pollen Allergy Severe sob, Verified 01/15/24 18:14 sneezing , coughing mold Allergy Unknown coughing, Verified 01/15/24 18:14 sneezing, sob morphine Allergy Itching, Verified 01/15/24 18:14 sob NSAIDS (Non-Steroidal AdvReac Verified 01/15/24 18:14 Anti-Inflamma Physical Exam Vitals: Vital Signs Temp Pulse Resp BP Pulse Ox 01/15/24 20:26 99.1 F 73 20 112/59 92 L 01/15/24 17:29 99.9 F H 83 20 147/78 96 01/15/24 14:31 100.1 F H 88 16 122/80 97 Intake and Output 01/15/24 01/15/24 01/15/24 06:59 14:59 22:59 Other: Weight 72.575 kg Results CBC & Chem 7: 01/15/24 17:48 01/15/24 17:48 Labs: Abnormal Lab Results - Last 24 Hours (Table) 0201/15/24 01/15/24 Range/Units 14:35 17:48 17:48 RBC 3.68 L (3.80-5.40) m/uL Lymphocytes # 0.8 L (1.0-4.8) k/uL Glucose 102 H (74-99) mg/dL Total Protein 6.2 L (6.3-8.2) g/dL Influenza Type A (PCR) Detected A (Not Detectd) SARS-CoV-2 (PCR) Detected A (Not Detectd)
[2024-01-15] MEDS: APIXABAN 2.5 MG TABLET PO SCH (23:21)
[2024-01-15] MEDS: ACETAMINOPHEN TAB 325 MG TAB PO PRN (23:46)
[2024-01-16] MEDS ORDERED: OSELTAMIVIR 75 MG CAP PO SCH (09:00)
[2024-01-16] MEDS: SYMBICORT 160-4.5 MCG INHALER INHALATION SCH (09:23)
[2024-01-16] MEDS: FUROSEMIDE 40 MG TAB PO SCH (10:17)
[2024-01-16] MEDS: METOPROLOL SUCCINATE (ER) 25 MG TAB.ER.24H PO SCH (10:17)
[2024-01-16] MEDS: CITALOPRAM HYDROBROMIDE 20 MG TAB PO SCH (10:17)
[2024-01-16] MEDS: PANTOPRAZOLE 40 MG TABLET PO SCH (10:17)
[2024-01-16] MEDS: dexAMETHasone 2 MG TAB PO SCH (10:17)
[2024-01-16] MEDS: polyethylene glycoL 3350 17 GM POWD.PACK PO SCH (10:17)
[2024-01-16] MEDS: FLUTICASONE 50MCG/SPRAY NASAL 16GM EA NOSTRIL SCH (10:18)
[2024-01-16 11:33] LABS: Basophils # (A) 0.02 X 10*3/uL (0.00-0.10); Basophils % (A) 0.4 %; Eosinophils # (A) 0 X 10*3/uL (0.04-0.35); Eosinophils % (A) 0 %; HCT 33.7 % (37.2-46.3); HGB 10.6 g/dL (12.0-15.0); Lymphocytes # (A) 1.15 X 10*3/uL (0.90-5.00); Lymphocytes % (A) 22.9 %; MCH 29.6 pg (27.0-32.0); MCHC 31.5 g/dL (32.0-37.0); MCV 94.1 FL (80.0-97.0); Mean Platelet Volume 10.5 FL (9.5-12.2); Monocytes # (A) 0.46 X 10*3/uL (0.20-1.00); Monocytes % (A) 9.1 %; NRBC Per 100 WBC 0 X 10*3/uL (0.00-0.01); Neutrophils # (A) 3.38 X 10*3/uL (1.80-7.70); Neutrophils % (A) 67.2 %; Platelet Count 226 X 10*3/uL (140-440); RBC 3.58 X 10*6/uL (4.10-5.20); RDW 14.4 % (11.5-14.5); WBC 5.03 X 10*3/uL (4.50-10.00)
[2024-01-16] MEDS: OSELTAMIVIR 75 MG CAP PO SCH (11:39)
[2024-01-16 11:45] LABS: ALT 12 U/L (8-44); AST 21 U/L (13-35); Albumin 3.3 g/dL (3.8-4.9); Albumin/Globulin Ratio 1.38 Ratio (1.60-3.17); Alkaline Phosphatase 70 U/L (41-126); BUN/Creat Ratio 23.83 Ratio (12.00-20.00); Blood Urea Nitrogen 14.3 mg/dL (9.0-27.0); Calcium 8.8 mg/dL (8.7-10.3); Carbon Dioxide 22.1 mmol/L (21.6-31.8); Chloride 108 mmol/L (96-109); Globulin 2.4 g/dL (1.6-3.3); Glucose 95 mg/dL (70-110); Magnesium 2.2 mg/dL (1.5-2.4); Phosphorus 3.1 mg/dL (2.4-5.1); Potassium 4.1 mmol/L (3.5-5.5); Sodium 140 mmol/L (135-145); Total Bilirubin <0.2 mg/dL (0.3-1.2); Total Protein 5.7 g/dL (6.2-8.2)
[2024-01-16] MEDS: OSELTAMIVIR 60 MG/10 ML ORAL SYRINGE PO SCH (12:26)
--- NOTE | 2024-01-16 13:14 | P.PN ---
Subjective Progress Note Date: 01/16/24 Hospital Course: 88-year-old female with history of asthma, GERD, DVT/PE, hypertension, heart failure? Presenting with acute hypoxic respiratory failure in the setting of influenza A and COVID-19 infection. Patient initially febrile and requiring oxygen, now afebrile, vital signs within normal limits and on room air. Laboratory workup unremarkable except for positive influenza A and COVID-19. Chest x-ray did not show any opacities. Patient started on Tamiflu and Decadron. Likely needs subacute rehab. Subjective: Patient seen and examined at bedside. No acute events overnight. Pertinent positives and negatives as discussed above, a complete review of systems was performed and all other systems are negative. Vitals Signs Reviewed. General: Nontoxic, no distress, appears at stated age Derm: Warm, dry Head: Atraumatic, normocephalic, symmetric Eyes: EOMI, no lid lag, anicteric sclera Mouth: No lip lesion, mucus membranes moist Cardiovascular: S1S2 reg, no murmur Lungs: CTA bilateral, no rhonchi, no rales, no accessory muscle use Abdominal: Soft, nontender to palpation, no guarding, no appreciable organomegaly Ext: No gross muscle atrophy, no edema, no contractures Neuro: CN II-XI grossly intact, no focal neuro deficits Psych: Alert, oriented, appropriate affect Data Reviewed Today: Pertinent Labs: Hemoglobin 10.6, potassium 4.1, creatinine 0.6 Imaging: No new imaging Assessment and Plan: Active: Influenza A infection COVID-19 infection Acute hypoxic respiratory failure, resolved Continue Tamiflu 30 p.o. twice daily Continue oral Decadron 6 mg daily On room air Symptomatic management with oral Tylenol as needed Debility PT/OT May need subacute rehab Chronic: Asthma, not in exacerbation DVT/PE Hypertension Heart failure? Continue home medications DVT ppx: Eliquis Code status: FC Anticipated discharge place: [facility] likely Anticipated discharge time: pending clinical course Objective - Vital Signs Vital signs: Vital Signs Temp 98.6 F 01/16/24 08:00 Pulse 60 01/16/24 08:00 Resp 17 01/16/24 08:00 BP 113/71 01/16/24 08:00 Pulse Ox 98 01/16/24 08:00 FiO2 Intake & Output 01/15/24 01/16/24 01/16/24 18:59 06:59 18:59 Weight 72.575 kg 72.575 kg Other: Voiding Method Bedside Commode - Labs CBC & Chem 7: 01/16/24 06:39 01/16/24 06:39 Labs: Abnormal Lab Results - Last 24 Hours (Table) 01/15/24 01/15/24 01/15/24 Range/Units 14:35 17:48 17:48 RBC 3.68 L (3.80-5.40) m/uL Hgb (12.0-15.0) g/dL Hct (37.2-46.3) % MCHC (32.0-37.0) g/dL Lymphocytes # 0.8 L (1.0-4.8) k/uL Eosinophils # (0.04-0.35) X 10*3/uL BUN/Creatinine Ratio (12.00-20.00) Ratio Glucose 102 H (74-99) mg/dL Total Bilirubin (0.3-1.2) mg/dL Total Protein 6.2 L (6.3-8.2) g/dL Albumin (3.8-4.9) g/dL Albumin/Globulin Ratio (1.60-3.17) Ratio Influenza Type A (PCR) Detected A (Not Detectd) SARS-CoV-2 (PCR) Detected A (Not Detectd) 01/16/24 01/16/24 Range/Units 06:39 06:39 RBC 3.58 L (3.80-5.40) m/uL Hgb 10.6 L (12.0-15.0) g/dL Hct 33.7 L (37.2-46.3) % MCHC 31.5 L (32.0-37.0) g/dL Lymphocytes # (1.0-4.8) k/uL Eosinophils # 0 L (0.04-0.35) X 10*3/uL BUN/Creatinine Ratio 23.83 H (12.00-20.00) Ratio Glucose (74-99) mg/dL Total Bilirubin <0.2 L (0.3-1.2) mg/dL Total Protein 5.7 L (6.3-8.2) g/dL Albumin 3.3 L (3.8-4.9) g/dL Albumin/Globulin Ratio 1.38 L (1.60-3.17) Ratio Influenza Type A (PCR) (Not Detectd) SARS-CoV-2 (PCR) (Not Detectd)
[2024-01-16] MEDS: MONTELUKAST 10 MG TAB PO SCH (22:45)
[2024-01-16] MEDS: guaiFENesin 600 MG TABLET.ER PO SCH (22:45)
[2024-01-16] MEDS: GABAPENTIN 100 MG CAP PO SCH (22:45)
[2024-01-16] MEDS: traMADol 50 MG TAB PO PRN (23:07)
--- NOTE | 2024-01-17 12:17 | P.PN ---
Subjective Progress Note Date: 01/17/24 Hospital Course: 88-year-old female with history of asthma, GERD, DVT/PE, hypertension, heart failure? Presenting with acute hypoxic respiratory failure in the setting of influenza A and COVID-19 infection. Patient initially febrile and requiring oxygen, now afebrile, vital signs within normal limits and on room air. Laboratory workup unremarkable except for positive influenza A and COVID-19. Chest x-ray did not show any opacities. Patient started on Tamiflu and Decadron. Likely needs subacute rehab. Subjective: Patient seen and examined at bedside. No acute events overnight. Doing a lot better today Pertinent positives and negatives as discussed above, a complete review of systems was performed and all other systems are negative. Vitals Signs Reviewed. General: Nontoxic, no distress, appears at stated age Derm: Warm, dry Head: Atraumatic, normocephalic, symmetric Eyes: EOMI, no lid lag, anicteric sclera Mouth: No lip lesion, mucus membranes moist Cardiovascular: S1S2 reg, no murmur Lungs: CTA bilateral, no rhonchi, no rales, no accessory muscle use Abdominal: Soft, nontender to palpation, no guarding, no appreciable organomegaly Ext: No gross muscle atrophy, no edema, no contractures Neuro: CN II-XI grossly intact, no focal neuro deficits Psych: Alert, oriented, appropriate affect Data Reviewed Today: Pertinent Labs: No new labs Imaging: No new imaging Assessment and Plan: Active: Influenza A infection COVID-19 infection Acute hypoxic respiratory failure, resolved Continue Tamiflu 30 p.o. twice daily Continue oral Decadron 6 mg daily On room air Symptomatic management with oral Tylenol as needed Debility PT/OT Needs subacute rehab Chronic: Asthma, not in exacerbation DVT/PE Hypertension Heart failure? Continue home medications DVT ppx: Eliquis Code status: FC Anticipated discharge place: Subacute rehab Anticipated discharge time: Friday Objective - Vital Signs Vital signs: Vital Signs Temp 99.2 F 01/17/24 02:00 Pulse 77 01/17/24 02:00 Resp 17 01/17/24 02:00 BP 144/78 01/17/24 02:00 Pulse Ox 96 01/17/24 02:00 FiO2 Intake & Output 01/16/24 01/17/24 01/17/24 18:59 06:59 18:59 Other: Voiding Method Bedside Commode Toilet Toilet # Voids 5 2 - Labs CBC & Chem 7: 01/16/24 06:39 01/16/24 06:39
[2024-01-18] MEDS ORDERED: IPRATROPIUM-ALBUTEROL 3 ML NEB INHALATION PRN (09:43)
--- NOTE | 2024-01-18 10:35 | XR ---
EXAMINATION TYPE: XR chest 1V portable DATE OF EXAM: 01/18/2024 10:19 AM CLINICAL INDICATION:Female, 88 years old with history of SOB flu cov; [facility] COMPARISON: Chest radiographs from 01/15/2024 TECHNIQUE: XR chest 1V portable Frontal view of the chest. FINDINGS: Lungs/Pleura: There is no evidence of pleural effusion, focal consolidation, or pneumothorax. Pulmonary vascularity: Unremarkable. Heart/mediastinum: Cardiomediastinal silhouette is unremarkable. Musculoskeletal: Degenerative changes of the shoulder joints. Left shoulder arthroplasty. IMPRESSION: 1. No acute cardiopulmonary disease process. 2. COPD changes.
--- NOTE | 2024-01-18 11:26 | P.PN ---
Subjective Progress Note Date: 01/18/24 Hospital Course: 88-year-old female with history of asthma, GERD, DVT/PE, hypertension, heart failure? Presenting with acute hypoxic respiratory failure in the setting of influenza A and COVID-19 infection. Patient initially febrile and requiring oxygen, now afebrile, vital signs within normal limits and on room air. Laboratory workup unremarkable except for positive influenza A and COVID-19. Chest x-ray did not show any opacities. Patient started on Tamiflu and Decadron. Likely needs subacute rehab. Subjective: Patient seen and examined at bedside. No acute events overnight. Has been ex periencing some right-sided chest pain with cough, and also worsening cough and some productive sputum Pertinent positives and negatives as discussed above, a complete review of systems was performed and all other systems are negative. Vitals Signs Reviewed. General: Nontoxic, no distress, appears at stated age Derm: Warm, dry Head: Atraumatic, normocephalic, symmetric Eyes: EOMI, no lid lag, anicteric sclera Mouth: No lip lesion, mucus membranes moist Cardiovascular: S1S2 reg, no murmur Lungs: Rhonchorous breath sounds, no accessory muscle use Abdominal: Soft, nontender to palpation, no guarding, no appreciable organomegaly Ext: No gross muscle atrophy, no edema, no contractures Neuro: CN II-XI grossly intact, no focal neuro deficits Psych: Alert, oriented, appropriate affect Data Reviewed Today: Pertinent Labs: No new labs Imaging: Chest x-ray independently interpreted, shows no focal opacities, unchanged from prior Assessment and Plan: Active: Influenza A infection COVID-19 infection Acute hypoxic respiratory failure, resolved Acute bronchitis DuoNeb 4 times daily as needed Continue Tamiflu 30 p.o. twice daily Continue oral Decadron 6 mg daily On room air Symptomatic management with oral Tylenol as needed Debility PT/OT Needs subacute rehab Chronic: Asthma, not in exacerbation DVT/PE Hypertension Heart failure? Continue home medications DVT ppx: Eliquis Code status: FC Anticipated discharge place: Subacute rehab Anticipated discharge time: Friday Objective - Vital Signs Vital signs: Vital Signs Temp 98.4 F 01/18/24 06:53 Pulse 66 01/18/24 06:53 Resp 19 01/18/24 06:53 BP 146/78 01/18/24 06:53 Pulse Ox 91 L 01/18/24 06:53 FiO2 Intake & Output 01/17/24 01/18/24 01/18/24 18:59 06:59 18:59 Intake Total 980 Balance 980 Intake: Oral 980 Other: Voiding Method Toilet Toilet # Voids 5 4 # Bowel Movements 1 - Labs CBC & Chem 7: 01/16/24 06:39 01/16/24 06:39
[2024-01-18] MEDS: ALBUTEROL HFA INHALER INHALATION PRN (12:10)
[2024-01-19 08:32] VITALS: BP 162/79; PULSE 60; RESP 18; TEMP 98.2
--- NOTE | 2024-01-19 10:37 | P.DS ---
Providers Date of admission: 01/15/24 16:35 Expected date of discharge: 01/19/24 Attending physician: Chyna Padilla DO Primary care physician: Jamie Dan Lds Hospital Course: Discharge Diagnosis: Influenza A infection COVID-19 infection Acute hypoxic respiratory failure Acute viral bronchitis Debility Asthma, not in exacerbation Hospital Course: 88-year-old female with history of asthma, GERD, DVT/PE, hypertension, heart failure? presenting with acute hypoxic respiratory failure in the setting of influenza A and COVID-19 infection. Patient initially febrile and requiring oxygen, now afebrile, vital signs within normal limits and on room air. Laboratory workup unremarkable except for positive influenza A and COVID-19. Chest x-ray did not show any opacities. Patient started on Tamiflu and Decadron. Patient was initially planned to go to subacute rehab. No rehab facility available to date COVID-19 patients. Patient being discharged home with home care. Remains on room air at the time of discharge. Patient seen and examined at bedside. Vital signs reviewed and stable. General: Nontoxic, no distress, appears at stated age Derm: Warm, dry Head: Atraumatic, normocephalic, symmetric Eyes: EOMI, no lid lag, anicteric sclera Mouth: No lip lesion, mucus membranes moist Cardiovascular: S1S2 reg, no murmur Lungs: CTA bilateral, no rhonchi, no rales, no accessory muscle use Abdominal: Soft, nontender to palpation, no guarding, no appreciable organomegaly Ext: No gross muscle atrophy, no edema, no contractures Neuro: CN II-XI grossly intact, no focal neuro deficits Psych: Alert, oriented, appropriate affect A total of 33 minutes of time were spent preparing this complex discharge summary. Patient was discharged on 01/19/2024 at 1034. Patient Condition at Discharge: Stable Plan - Discharge Summary Discharge Rx Participant: Yes New Discharge Prescriptions: New dexAMETHasone ORAL [Hexadrol] 6 mg PO DAILY #18 tab guaiFENesin [Mucinex] 600 mg PO Q12HR PRN #10 tab PRN Reason: Congestion Oseltamivir 6Mg/ml Oral Susp [Tamiflu] 30 mg PO Q12HR #4 each Continue traMADol HCl [Ultram] 50 mg PO TID PRN PRN Reason: Pain Metoprolol Succinate (ER) [Toprol XL] 25 mg PO DAILY Fluticasone Propion/Salmeterol [Advair 500-50 Diskus] 1 puff INHALATION RT- BID Fluticasone Nasal [place] [Flonase Nasal [place]] 1 spr EA NOSTRIL BID Citalopram Hydrobromide [CeleXA] 20 mg PO BID Pantoprazole Sodium [Protonix] 40 mg PO DAILY Vitamin B Complex 1 cap PO DAILY Montelukast [Singulair] 10 mg PO HS Melatonin 5 mg PO HS PRN PRN Reason: sleep Gabapentin [Neurontin] 100 mg PO HS Furosemide [Lasix] 40 mg PO DAILY Apixaban [Eliquis] 2.5 mg PO BID Acetaminophen Tab [Tylenol] 500 mg PO Q6H PRN PRN Reason: Pain Discharge Medication List Metoprolol Succinate (ER) [Toprol XL] 25 mg PO DAILY 05/02/14 [History] traMADol HCl [Ultram] 50 mg PO TID PRN 05/02/14 [History] Fluticasone Nasal [place] [Flonase Nasal [place]] 1 spr EA NOSTRIL BID 04/26/16 [History] Fluticasone Propion/Salmeterol [Advair 500-50 Diskus] 1 puff INHALATION RT-BID 04/26/16 [History] Citalopram Hydrobromide [CeleXA] 20 mg PO BID 04/08/17 [History] Pantoprazole Sodium [Protonix] 40 mg PO DAILY 11/04/18 [History] Vitamin B Complex 1 cap PO DAILY 11/04/18 [History] Furosemide [Lasix] 40 mg PO DAILY 06/02/23 [History] Montelukast [Singulair] 10 mg PO HS 06/02/23 [History] Acetaminophen Tab [Tylenol] 500 mg PO Q6H PRN 01/15/24 [History] Apixaban [Eliquis] 2.5 mg PO BID 01/15/24 [History] Gabapentin [Neurontin] 100 mg PO HS 01/15/24 [History] Melatonin 5 mg PO HS PRN 01/15/24 [History] Oseltamivir 6Mg/ml Oral Susp [Tamiflu] 30 mg PO Q12HR #4 each 01/19/24 [Rx] dexAMETHasone ORAL [Hexadrol] 6 mg PO DAILY #18 tab 01/19/24 [Rx] guaiFENesin [Mucinex] 600 mg PO Q12HR PRN #10 tab 01/19/24 [Rx] Follow up Appointment(s)/Referral(s): Residential Home,Health [NON-STAFF] - As Needed Jamie Dan DO [Primary Care Provider] - 1-2 days Patient Instructions/Handouts: Influenza (DC), COVID-19 (Coronavirus Disease 2019) (DC) Activity/Diet/Wound Care/Special Instructions: Please see your PCP. Discharge Disposition: HOME WITH HOME HEALTH SERVICES
== END 2024-01-19 13:41 | disposition home health service (06) | DRG 177 ==
LOC: EC 14:01 → 4SSUR 16:35 → OBSVTOIN 01-16 13:48
PROVIDERS: ADMIT Internal Medicine; ATTEND Internal Medicine
DX: U07.1 COVID-19 (principal); J96.01 Acute respiratory failure with hypoxia; J10.1 Influenza due to other identified influenza virus with other respiratory manifestations; J20.8 Acute bronchitis due to other specified organisms; J45.909 Unspecified asthma, uncomplicated; F41.9 Anxiety disorder, unspecified; F32.A Depression, unspecified; K21.9 Gastro-esophageal reflux disease without esophagitis; I11.0 Hypertensive heart disease with heart failure; I50.9 Heart failure, unspecified; M19.90 Unspecified osteoarthritis, unspecified site; K44.9 Diaphragmatic hernia without obstruction or gangrene; Z96.642 Presence of left artificial hip joint; Z96.612 Presence of left artificial shoulder joint; Z79.51 Long term (current) use of inhaled steroids; Z96.659 Presence of unspecified artificial knee joint; Z88.5 Allergy status to narcotic agent; Z88.6 Allergy status to analgesic agent; Z86.711 Personal history of pulmonary embolism; Z79.899 Other long term (current) drug therapy; Z79.01 Long term (current) use of anticoagulants
CPT/HCPCS: 71045; 71046; 80053; 83605; 83735; 84100; 85025; 85610; 85730; 87636; 94640; 96361; 96365; 96375; 99285